=== PATIENT | female | born 1960 ===

== ENCOUNTER 2017-05-25 10:51 | Observation (INO) | payer MEDICAID ==
[2017-05-25] MEDS ORDERED: Sodium Chloride 0.9% 500 ML IV STA (11:18)
--- NOTE | 2017-05-25 11:22 | ED PDOC ---
HPI: Chest Pain Time Seen by Provider: 05/25/17 11:10 Chief Complaint (Nursing): Chest Pain Chief Complaint (Provider): Chest Pain History Per: Patient History/Exam Limitations: no limitations Onset/Duration Of Symptoms: Days (x 3) Current Symptoms Are (Timing): Still Present Additional Complaint(s): Aidee Rodriguez is a 57 y/o female with a past medical history of diabetes, hypertension, hypercholesterolemia, rheumatoid arthritis, and tachycardia, who presents to the ED complaining of constant chest pain for the past 3 days. Pain radiates up to her right shoulder and neck, and is associated with nausea, vomiting, and lightheadedness. Denies any associated leg pain, calf tenderness, numbness, tingling, weakness, shortness of breath, diarrhea, or abdominal pain. Also reports her blood sugar has been abnormal over the past 3 days. No control pills or long distance travel. PMD: [facility] Cardio: Dr. Jesus Manuel Damon - Risk Factors TAD Risk Factors: Pos: Hypertension Past Medical History Reviewed: Historical Data, Nursing Documentation, Vital Signs Vital Signs: Last Vital Signs Temp 97.6 F 05/25/17 11:00 Pulse 119 H 05/25/17 11:00 Resp 16 05/25/17 11:00 BP 152/92 H 05/25/17 11:00 Pulse Ox 98 05/25/17 11:25 - Medical History PMH: Diabetes (type II), HTN, Hypercholesterolemia, Kidney Stones, Chronic Kidney Disease (stones), Rheumatoid Arthritis Denies: HIV Other PMH: Tachycardia - Surgical History Surgical History: Appendectomy, Cholecystectomy Denies: CABG - Family History Family History: States: Unknown Family Hx - Social History Alcohol: None Drugs: Denies - Home Medications Home Medications: Ambulatory Orders Medication Instructions Recorded ALPRAZolam [Xanax] 0.25 mg PO HS 05/25/17 Allopurinol [Zyloprim] 300 mg PO DAILY 05/25/17 Aspirin [Ecotrin] 81 mg PO DAILY 05/25/17 Atenolol [Tenormin] 100 mg PO DAILY 05/25/17 Atorvastatin [Lipitor] 40 mg PO DAILY 05/25/17 Losartan Potassium [Losartan 100 mg PO DAILY 05/25/17 Potassium] [place]-3 Fatty Acids/Fish Oil 1,000 mg PO TID 05/25/17 [[place] 3 Fish Oil Softgel] diltiaZEM [Cardizem] 240 mg PO DAILY 05/25/17 metFORMIN [glucOPHAGE] 500 mg PO BID 05/25/17 - Allergies Allergies/Adverse Reactions: Allergies Allergy/AdvReac Type Severity Reaction Status Date / Time No Known Allergies Allergy Verified 06/19/16 21:11 Review of Systems ROS Statement: Except As Marked, All Systems Reviewed And Found Negative Constitutional: Negative for: Fever, Chills Cardiovascular: Positive for: Chest Pain (extending up right shoulder/neck), Light Headedness Gastrointestinal: Positive for: Nausea, Vomiting. Negative for: Abdominal Pain , Diarrhea Musculoskeletal: Negative for: Leg Pain, Other (Calf tenderness) Neurological: Negative for: Weakness, Numbness (and tingling) Physical Exam - Reviewed Nursing Documentation Reviewed: Yes Vital Signs Reviewed: Yes - Physical Exam Appears: Positive for: Non-toxic, No Acute Distress Head Exam: Positive for: ATRAUMATIC, NORMAL INSPECTION, NORMOCEPHALIC Skin: Positive for: Normal Color, Warm, Dry Eye Exam: Positive for: EOMI, Normal appearance, PERRL ENT: Positive for: Normal ENT Inspection Neck: Positive for: Normal, Painless ROM, Supple Cardiovascular/Chest: Positive for: Chest Non Tender, Tachycardia. Negative for : Regular Rate, Rhythm (mild tachy), Edema, Murmur Respiratory: Positive for: Normal Breath Sounds. Negative for: Accessory Muscle Use, Respiratory Distress Gastrointestinal/Abdominal: Positive for: Normal Exam, Soft. Negative for: Tenderness Back: Positive for: Normal Inspection. Negative for: L CVA Tenderness, R CVA Tenderness, Vertebral Tenderness Extremity: Positive for: Normal ROM. Negative for: Calf Tenderness, Deformity Neurologic/Psych: Positive for: Alert, Oriented. Negative for: Motor/Sensory Deficits - Laboratory Results Result Diagrams: 05/25/17 11:25 05/25/17 12:05 Interpretation Of Abn Labs: 17 CO2 - ECG ECG: Positive for: Interpreted By Me, Viewed By Me ECG Rhythm: Positive for: Normal QRS, Normal ST Segment, Sinus Tachycardia O2 Sat by Pulse Oximetry: 98 (RA) Pulse Ox Interpretation: Normal - Radiology X-Ray: Interpreted by Me, Viewed By Me X-Ray Interpretation: No Acute Disease - Progress ED Course And Treament: 1306: Stable. AAOx3. Pain free. Will admit for further eval. Spoke with Jian marie [place]. Will admit. Medical Decision Making Medical Decision Making: Time: 11:17 Impression: Chest pain Initial Plan: --CMP --Troponin I --CBC --PTT --Prothrombin time --EKG --CXR --Aspirin 325 mg PO --NS IV 500 ml at 100 mls/hr --Pending reevaluation Scribe Attestation: Documented by Nicole Aldridge, acting as a scribe for Jc Cedeño MD Provider Scribe Attestation: All medical record entries made by the Scribe were at my direction and personally dictated by me. I have reviewed the chart and agree that the record accurately reflects my personal performance of the history, physical exam, medical decision making, and the department course for this patient. I have also personally directed, reviewed, and agree with the discharge instructions and disposition. Disposition - Clinical Impression Clinical Impression: Acute chest pain, Hyperglycemia - Patient ED Disposition Is Patient to be Admitted: Yes Counseled Patient/Family Regarding: Studies Performed, Diagnosis - Disposition Disposition Time: 13:07 Condition: FAIR - Pt Status Changed To: Hospital Disposition Of: Observation - POA Present On Arrival: Poor Glycemic Control Core Measure Indicators: Chest Pain
[2017-05-25 11:37] LABS: BASO # 0.1 K/uL (0.0-0.2); BASO % 1.3 % (0.0-2.0); EOS # 0.2 K/uL (0.0-0.7); EOS % 2.8 % (0.0-4.0); HEMATOCRIT 43.6 % (34.0-47.0); LYMPH # 1.8 K/uL (1.0-4.3); LYMPH % 27.4 % (20.0-40.0); MEAN CELL VOLUME 87.9 fl (81.0-99.0); MEAN CORPUSCULAR HEMOGLOBIN 31.2 pg (27.0-31.0); MEAN CORPUSCULAR HGB CONC 35.5 g/dL (33.0-37.0); MEAN PLATELET VOLUME 10.2 fl (7.2-11.7); MONO # 0.6 K/uL (0.0-0.8); MONO % 8.6 % (0.0-10.0); NEUT # 3.9 K/uL (1.8-7.0); NEUT % 59.9 % (50.0-75.0); NRBC % 0.3 % (0.0-0.0); RED CELL DISTRIBUTION WIDTH 14.1 % (11.5-14.5); WHITE BLOOD COUNT 6.6 K/uL (4.8-10.8)
[2017-05-25 11:55] LABS: ALKALINE PHOSPHATASE 117 U/L (38-126); ALT/SGPT 30 U/L (9-52); AST/SGOT 67 U/L (14-36); BILIRUBIN,TOTAL 2.4 mg/dl (0.2-1.3); BLOOD UREA NITROGEN 8 mg/dl (7-17); CARBON DIOXIDE 17 mmol/L (22-30); CHLORIDE 105 mmol/L (98-107); GFR AFRICAN-AMERICAN > 60; GLUCOSE,RANDOM 312 mg/dL (65-105); SODIUM 136 mmol/l (132-148); TOTAL PROTEIN 9.2 G/DL (6.3-8.2)
[2017-05-25 12:04] LABS: POTASSIUM 6.2 MMOL/L (3.6-5.0)
[2017-05-25 12:12] LABS: PARTIAL THROMBOPLASTIN TIME 28.9 Seconds (25.6-37.1)
--- NOTE | 2017-05-25 12:54 | RAD ---
HISTORY: chest pain COMPARISON: No prior. FINDINGS: LUNGS: No active pulmonary disease. PLEURA: No significant pleural effusion identified, no pneumothorax apparent. CARDIOVASCULAR: Normal. OSSEOUS STRUCTURES: No significant abnormalities. VISUALIZED UPPER ABDOMEN: Normal. OTHER FINDINGS: None. IMPRESSION: No active disease.
[2017-05-25] MEDS ORDERED: Insulin Regular 100 units/ml IV STA ×2 (12:56→14:03)
[2017-05-25] MEDS ORDERED: Sodium Chloride 0.9% 1,000 ML IV STA (12:56)
[2017-05-25] MEDS ORDERED: diltiaZEM 240 mg/24 Hours CD Cap PO STA (13:30)
[2017-05-25] MEDS ORDERED: ATENOLOL 100 MG TAB PO STA (13:30)
[2017-05-25] MEDS ORDERED: Pneumococcal 23-Valent Vaccine IM ONE (16:11)
[2017-05-25] MEDS ORDERED: Influenza Vaccine 18yr & older 0.5 ML/45 MCG SYR IM ONE (16:12)
[2017-05-25 16:13] VITALS: BMI 33.3
[2017-05-25] MEDS: Insulin Regular 100 units/ml SC SCH ×2 (17:06→21:37)
[2017-05-25] MEDS: Omega-3-Acid Ethyl Esters 1 GM Cap PO SCH (17:07)
[2017-05-26 06:46] LABS: BASO # 0.1 K/uL (0.0-0.2); EOS # 0.3 K/uL (0.0-0.7); EOS % 4.5 % (0.0-4.0); HEMATOCRIT 41.7 % (34.0-47.0); LYMPH # 1.6 K/uL (1.0-4.3); LYMPH % 25.1 % (20.0-40.0); MEAN CORPUSCULAR HEMOGLOBIN 30.4 pg (27.0-31.0); MEAN CORPUSCULAR HGB CONC 33.8 g/dL (33.0-37.0); MEAN PLATELET VOLUME 8.9 fl (7.2-11.7); MONO # 0.6 K/uL (0.0-0.8); MONO % 9.4 % (0.0-10.0); NEUT # 3.7 K/uL (1.8-7.0); NRBC % 0.1 % (0.0-0.0); RED CELL DISTRIBUTION WIDTH 14.1 % (11.5-14.5); WHITE BLOOD COUNT 6.2 K/uL (4.8-10.8)
[2017-05-26 07:01] LABS: ALKALINE PHOSPHATASE 92 U/L (38-126); ALT/SGPT 51 U/L (9-52); AST/SGOT 22 U/L (14-36); BILIRUBIN,TOTAL 0.7 mg/dl (0.2-1.3); BLOOD UREA NITROGEN 7 mg/dl (7-17); CALCIUM 8.9 mg/dL (8.4-10.2); CARBON DIOXIDE 20 mmol/L (22-30); CHLORIDE 106 mmol/L (98-107); GFR AFRICAN-AMERICAN > 60; GLUCOSE,RANDOM 254 mg/dL (65-105); POTASSIUM 3.8 MMOL/L (3.6-5.0); SODIUM 137 mmol/l (132-148)
[2017-05-26] MEDS ORDERED: ATENOLOL 100 MG TAB PO SCH (09:00)
[2017-05-26] MEDS: Omega-3-Acid Ethyl Esters 1 GM Cap PO SCH ×2 (09:19→14:55)
[2017-05-26] MEDS: Insulin Regular 100 units/ml SC SCH ×2 (09:24→12:27)
--- NOTE | 2017-05-26 09:29 | CARD ---
APPROVED REPORT EKG Measurement Heart [id number] <Conclusion> Sinus tachycardia Possible Left atrial enlargement Borderline ECG
[2017-05-26] MEDS ORDERED: diltiaZEM 240 mg/24 Hours CD Cap PO SCH (09:45)
--- NOTE | 2017-05-26 10:03 | CP.PCM.CON ---
History of Present Illness - History of Present Illness History of Present Illness: I was asked to see patietn by Dr. Badillo and Jian Lindsey APN. Patient is a 57 year old female with a history of HTN, DM and rheumatoid arthritis who presents with neck and chest pain. The patient describes a pressure like sensation which began in the neck and upper back. She developed chest pain. Symptoms occurred at rest. There were no regional wall motion abnormalites. The patient presented to [facility] for further management. The patient has no current chest pain. Review of Systems - Constitutional Constitutional: absent: As Per HPI, Anorexia, Chills, Daytime Sleepiness, Excessive Sweating, Fatigue, Fever, Frequent Falls, Headache, Increased Appetite , Lethargy, Malaise, Night Sweats, Snoring, Sleep Apnea, Weight Gain, Weight Loss, Weakness, Other - EENT Eyes: absent: As Per HPI, Blind Spots, Blurred Vision, Change in Vision, Decreased Night Vision, Diplopia, Discharge, Dry Eye, Exophthalmos, Floaters, Irritation, Itchy Eyes, Loss of Peripheral Vision, Pain, Photophobia, Requires Corrective Lenses, Sees Flashes, Spots in Vision, Tunnel Vision, Other Visual Disturbances, Loss of Vision, Other Nose/Mouth/Throat: absent: As Per HPI, Epistaxis, Nasal Congestion, Nasal Discharge, Nasal Obstruction, Nasal Trauma, Nose Pain, Post Nasal Drip, Sinus Pain, Sinus Pressure, Bleeding Gums, Change in Voice, Dental Pain, Dry Mouth, Dysphagia, Halitosis, Hoarsness, Lip Swelling, Mouth Lesions, Mouth Pain, Odynophagia, Sore Throat, Throat Swelling, Tongue Swelling, Facial Pain, Neck Pain, Neck Mass, Other - Breasts Breasts: absent: As Per HPI, Change in Shape, Mass, Pain, Nipple Discharge, Nipple Inversion, Skin Changes, Swelling, Other - Cardiovascular Cardiovascular: Chest Pain - Respiratory Respiratory: absent: As Per HPI, Cough, Dyspnea, Hemoptysis, Dyspnea on Exertion , Wheezing, Snoring, Stridor, Pain on Inspiration, Chest Congestion, Excessive Mucous Production, Change in Mucous Color, Pain with Coughing, Other - Gastrointestinal Gastrointestinal: absent: As Per HPI, Abdominal Pain, Belching, Bloating, Change in Bowel Habits, Change in Stool Character, Coffee Ground Emesis, Constipation, Cramping, Diarrhea, Dyspepsia, Dysphagia, Early Satiety, Excessive Flatus, Fecal Incontinence, Heartburn, Hematemesis, Hematochezia, Loose Stools, Melena, Nausea, Odynophagia, Temesmus, Vomiting, Other - Genitourinary Genitourinary: absent: As Per HPI, Change in Urinary Stream, Difficulty Urinating, Dysuria, Flank Pain, Hematuria, Pyuria, Nocturia, Urinary Incontinence, Urinary Frequency, Urinary Hesitance, Urinary Urgency, Voiding Freq/Small Amts, Freq UTI, Hx Renal/Bladder Calculi, Hx /Renal Surgery, Bladder Distension, Other - Musculoskeletal Musculoskeletal: absent: As Per HPI, Abnormal Gait, Arthralgias, Atrophy, Back Pain, Deformity, Joint Swelling, Limited Range of Motion, Loss of Height, Muscle Cramps, Muscle Weakness, Myalgias, Neck Pain, Numbness, Radiating Pain into Limb, Stiffness, Tingling, Other - Integumentary Integumentary: absent: As Per HPI, Acne, Alopecia, Bleeding Lesions, Change in Hair, Change in Nails, Change in Pigmentation, Changing Lesions, Dry Skin, Erythema, Furuncle, Hirsutism, Lesions, New Lesions, Non-Healing Lesions, Photosensitivity, Pruritus, Rash, Skin Pain, Skin Ulcer, Sores, Striae, Swelling , Unusual Bruising, Wounds, Jaundice, Other - Neurological Neurological: absent: As Per HPI, Abnormal Gait, Abnormal Hearing, Abnormal Movements, Abnormal Speech, Behavioral Changes, Burning Sensations, Confusion, Convulsions, Disequilibrium, Dizziness, Numbness, Focal Weakness, Frequent Falls , Headaches, Lack of Coordination, Loss of Vision, Memory Loss, Paresthesias, Radicular Pain, Restless Legs, Sensory Deficit, Syncope, Tingling, Tremor, Vertigo, Weakness, Other Visual Disturbances, Other - Psychiatric Psychiatric: absent: As Per HPI, Abnormal Sleep Pattern, Anhedonia, Anxiety, Auditory Hallucinations, Behavioral Changes, Change in Appetite, Change in Libido, Confusion, Depression, Difficulty Concentrating, Hallucinations, Homicidal Ideation, Hopelessness, Irritability, Memory Loss, Mood Swings, Panic Attacks, Paranoia, Suicidal Ideation, Visual Hallucinations, Tactile Hallucinations, Other - Endocrine Endocrine: absent: As Per HPI, Change in Body Appearance, Change in Libido, Cold Intolorance, Deepening of Voice, Excessive Sweating, Fatigue, Flushing, Heat Intolorance, Increase in Ring/Shoe/Hat Size, Palpitations, Polydipsia, Polyphagia, Polyuria, Other - Hematologic/Lymphatic Hematologic: absent: As Per HPI, Easy Bleeding, Easy Bruising, Lymphadenopathy, Other Past Patient History - Past Medical History & Family History Past Medical History?: Yes - Past Social History Smoking Status: Heavy Smoker > 10 Cigarettes Daily - CARDIAC Hx Cardiac Disorders: Yes Hx Hypercholesterolemia: Yes Hx Hypertension: Yes - PULMONARY Hx Respiratory Disorders: No - NEUROLOGICAL Hx Neurological Disorder: No - HEENT Hx HEENT Problems: No - RENAL Hx Chronic Kidney Disease: Yes (stones) - ENDOCRINE/METABOLIC Hx Endocrine Disorders: Yes Hx Diabetes Mellitus Type 2: Yes - HEMATOLOGICAL/ONCOLOGICAL Hx Blood Disorders: No Hx AIDS: No Hx Human Immunodeficiency Virus (HIV): No - INTEGUMENTARY Hx Dermatological Problems: No - MUSCULOSKELETAL/RHEUMATOLOGICAL Hx Musculoskeletal Disorders: Yes Hx Falls: No Hx Rheumatoid Arthritis: Yes - GASTROINTESTINAL Hx Gastrointestinal Disorders: No - GENITOURINARY/GYNECOLOGICAL Hx Genitourinary Disorders: No - PSYCHIATRIC Hx Psychophysiologic Disorder: No Hx Substance Use: No - SURGICAL HISTORY Hx Surgeries: Yes Hx Appendectomy: Yes Hx Cholecystectomy: Yes Hx Coronary Artery Bypass Graft: No - ANESTHESIA Hx Anesthesia: Yes Hx Anesthesia Reactions: Yes (nausea) Hx Malignant Hyperthermia: No Meds Allergies/Adverse Reactions: Allergies Allergy/AdvReac Type Severity Reaction Status Date / Time No Known Allergies Allergy Verified 06/19/16 21:11 - Medications Medications: Current Medications Allopurinol (Zyloprim) 300 mg PO DAILY [facility] Last Admin: 05/26/17 09:21 Dose: 300 mg Alprazolam (Xanax) 0.25 mg PO [facility] Stop: 06/01/17 22:01 Last Admin: 05/25/17 21:26 Dose: 0.25 mg Aspirin (Ecotrin) 81 mg PO DAILY [facility] Last Admin: 05/26/17 09:20 Dose: 81 mg Atenolol (Atenolol) 100 mg PO DAILY [facility] Last Admin: 05/26/17 09:20 Dose: 100 mg Atorvastatin Calcium (Lipitor) 40 mg PO [facility] Last Admin: 05/25/17 21:24 Dose: 40 mg Diltiazem HCl (Cardizem Cd) 240 mg PO DAILY [facility] Insulin Human Regular (Humulin R) 0 units SC [facility] PRN Reason: Protocol Last Admin: 05/26/17 09:24 Dose: 4 units Losartan Potassium (Cozaar) 100 mg PO DAILY [facility] Last Admin: 05/26/17 09:20 Dose: 100 mg Metformin HCl (Glucophage) 500 mg PO BID [facility] Last Admin: 05/26/17 09:19 Dose: 500 mg Nitroglycerin (Nitrostat Sl Tab) 0.4 mg SL Q5M PRN PRN Reason: cp [id number] Ethyl Esters (Lovaza) 1 gm PO TID [facility] Last Admin: 05/26/17 09:19 Dose: 1 gm Physical Exam - Constitutional Appears: Non-toxic - Head Exam Head Exam: NORMAL INSPECTION - Eye Exam Eye Exam: Normal appearance - ENT Exam ENT Exam: Mucous Membranes Moist - Neck Exam Neck exam: Positive for: Full Rom - Respiratory Exam Respiratory Exam: NORMAL BREATHING PATTERN - Cardiovascular Exam Cardiovascular Exam: REGULAR RHYTHM - GI/Abdominal Exam GI & Abdominal Exam: Normal Bowel Sounds - Rectal Exam Rectal Exam: Deferred - Extremities Exam Extremities exam: Negative for: pedal edema - Back Exam Back exam: NORMAL INSPECTION - Neurological Exam Neurological exam: Alert, Oriented x3 - Psychiatric Exam Psychiatric exam: Normal Affect - Skin Skin Exam: Normal Color Results - Vital Signs Recent Vital Signs: Last Vital Signs Temp 97.8 F 05/26/17 08:53 Pulse 93 H 05/26/17 09:20 Resp 18 05/26/17 08:53 BP 155/88 H 05/26/17 09:20 Pulse Ox 99 05/26/17 08:53 - Labs Result Diagrams: 05/26/17 06:00 05/26/17 06:00 Labs: Laboratory Results - last 24 hr 05/25/17 05/25/17 05/25/17 14:02 17:04 18:50 WBC RBC Hgb Hct MCV MCH MCHC RDW Plt Count MPV Neut % (Auto) Lymph % (Auto) [place] % (Auto) Eos % (Auto) Baso % (Auto) Neut # Lymph # [place] # Eos # Baso # Sodium Potassium Chloride Carbon Dioxide Anion Gap BUN Creatinine Est GFR ( Amer) Est GFR (Non-Af Amer) POC Glucose (mg/dL) 264 H 339 H Random Glucose Calcium Total Bilirubin AST ALT Alkaline Phosphatase Troponin I < 0.0120 Total Protein Albumin Globulin Albumin/Globulin Ratio 05/25/17 05/26/17 05/26/17 21:19 05:02 06:00 WBC 6.2 RBC 4.64 Hgb 14.1 Hct 41.7 MCV 90.0 D MCH 30.4 MCHC 33.8 RDW 14.1 Plt Count 168 MPV 8.9 Neut % (Auto) 60.0 Lymph % (Auto) 25.1 [place] % (Auto) 9.4 Eos % (Auto) 4.5 H Baso % (Auto) 1.0 Neut # 3.7 Lymph # 1.6 [place] # 0.6 Eos # 0.3 Baso # 0.1 Sodium Potassium Chloride Carbon Dioxide Anion Gap BUN Creatinine Est GFR ( Amer) Est GFR (Non-Af Amer) POC Glucose (mg/dL) 255 H 257 H Random Glucose Calcium Total Bilirubin AST ALT Alkaline Phosphatase Troponin I Total Protein Albumin Globulin Albumin/Globulin Ratio 05/26/17 06:00 WBC RBC Hgb Hct MCV MCH MCHC RDW Plt Count MPV Neut % (Auto) Lymph % (Auto) [place] % (Auto) Eos % (Auto) Baso % (Auto) Neut # Lymph # [place] # Eos # Baso # Sodium 137 Potassium 3.8 Chloride 106 Carbon Dioxide 20 L Anion Gap 15 BUN 7 Creatinine 0.4 L Est GFR ( Amer) > 60 Est GFR (Non-Af Amer) > 60 POC Glucose (mg/dL) Random Glucose 254 H Calcium 8.9 Total Bilirubin 0.7 AST 22 ALT 51 Alkaline Phosphatase 92 Troponin I < 0.0120 Total Protein 7.0 Albumin 3.6 Globulin 3.4 Albumin/Globulin Ratio 1.0 - EKG Data EKG Interpreted by: Myself EKG shows normal: Sinus rhythm Assessment & Plan (1) Chest pain Assessment and Plan: patient ruled out fro myocardial infarction by cardiac enzymes. recommend discharge from a cardiac standpoint. Given DM, consider outpatient stress test. Status: Acute (2) HTN (hypertension) Assessment and Plan: blood pressure control Status: Acute (3) Non-insulin dependent type 2 diabetes mellitus Assessment and Plan: risk factor for CAD. discussed risk factors Status: Acute
[2017-05-26] MEDS ORDERED: Sodium Chloride 0.9% 500 ML IV ONE (11:41)
[2017-05-26] MEDS ORDERED: Sodium Chloride 0.9% 1,000 ML IV SCH (11:45)
--- NOTE | 2017-05-26 11:45 | CP.PCM.HP ---
History of Present Illness - History of Present Illness History of Present Illness: pt admitted for cp headache and dizziness x 3 days. no f/c, n/v/d. also c/o neck pain. trops x 3 negative. cleared by cardio. bp and glucose elevated. pt did not eat large amt of food this am. cxr wnl. bw noted Present on Admission - Present on Admission Any Indicators Present on Admission: Yes History of Uncontrolled Diabetes: Yes Review of Systems - Constitutional Constitutional: As Per HPI, Fatigue - Cardiovascular Cardiovascular: As Per HPI, Chest Pain - Neurological Neurological: As Per HPI, Dizziness Past Patient History - Past Medical History & Family History Past Medical History?: Yes - Past Social History Smoking Status: Heavy Smoker > 10 Cigarettes Daily - CARDIAC Hx Cardiac Disorders: Yes Hx Hypercholesterolemia: Yes Hx Hypertension: Yes - PULMONARY Hx Respiratory Disorders: No - NEUROLOGICAL Hx Neurological Disorder: No - HEENT Hx HEENT Problems: No - RENAL Hx Chronic Kidney Disease: Yes (stones) - ENDOCRINE/METABOLIC Hx Endocrine Disorders: Yes Hx Diabetes Mellitus Type 2: Yes - HEMATOLOGICAL/ONCOLOGICAL Hx Blood Disorders: No Hx AIDS: No Hx Human Immunodeficiency Virus (HIV): No - INTEGUMENTARY Hx Dermatological Problems: No - MUSCULOSKELETAL/RHEUMATOLOGICAL Hx Musculoskeletal Disorders: Yes Hx Falls: No Hx Rheumatoid Arthritis: Yes - GASTROINTESTINAL Hx Gastrointestinal Disorders: No - GENITOURINARY/GYNECOLOGICAL Hx Genitourinary Disorders: No - PSYCHIATRIC Hx Psychophysiologic Disorder: No Hx Substance Use: No - SURGICAL HISTORY Hx Surgeries: Yes Hx Appendectomy: Yes Hx Cholecystectomy: Yes Hx Coronary Artery Bypass Graft: No - ANESTHESIA Hx Anesthesia: Yes Hx Anesthesia Reactions: Yes (nausea) Hx Malignant Hyperthermia: No Meds Home Medications: Home Medication List Medication Instructions Recorded Confirmed Type Ibuprofen [Motrin] 600 mg PO Q8 PRN #30 tab 05/26/17 Rx metFORMIN [glucOPHAGE] 1,000 mg PO BID #60 tab 05/26/17 05/25/17 Rx Allergies/Adverse Reactions: Allergies Allergy/AdvReac Type Severity Reaction Status Date / Time No Known Allergies Allergy Verified 06/19/16 21:11 Physical Exam - Constitutional Appears: Well, Non-toxic, No Acute Distress - Head Exam Head Exam: ATRAUMATIC, NORMAL INSPECTION, NORMOCEPHALIC - Eye Exam Eye Exam: EOMI, Normal appearance, PERRL Pupil Exam: NORMAL ACCOMODATION, PERRL - ENT Exam ENT Exam: Mucous Membranes Moist, Normal Exam - Neck Exam Neck exam: Positive for: Normal Inspection - Respiratory Exam Respiratory Exam: Clear to Auscultation Bilateral, NORMAL BREATHING PATTERN - Cardiovascular Exam Cardiovascular Exam: REGULAR RHYTHM, RRR, +S1, +S2 - GI/Abdominal Exam GI & Abdominal Exam: Normal Bowel Sounds, Soft. absent: Tenderness - Extremities Exam Extremities exam: Positive for: full ROM, normal capillary refill, normal inspection, pedal pulses present - Back Exam Back exam: NORMAL INSPECTION - Neurological Exam Neurological exam: Alert, CN II-XII Intact, Normal Gait, Oriented x3, Reflexes Normal - Psychiatric Exam Psychiatric exam: Normal Affect, Normal Mood - Skin Skin Exam: Dry, Intact, Normal Color, Warm Results - Vital Signs Recent Vital Signs: Last Vital Signs Temp 97.8 F 05/26/17 08:53 Pulse 93 H 05/26/17 10:55 Resp 18 05/26/17 08:53 BP 145/88 05/26/17 10:55 Pulse Ox 99 05/26/17 08:53 - Labs Result Diagrams: 05/26/17 06:00 05/26/17 06:00 Labs: Laboratory Results - last 24 hr 05/25/17 05/25/17 05/25/17 14:02 17:04 18:50 WBC RBC Hgb Hct MCV MCH MCHC RDW Plt Count MPV Neut % (Auto) Lymph % (Auto) [place] % (Auto) Eos % (Auto) Baso % (Auto) Neut # Lymph # [place] # Eos # Baso # Sodium Potassium Chloride Carbon Dioxide Anion Gap BUN Creatinine Est GFR ( Amer) Est GFR (Non-Af Amer) POC Glucose (mg/dL) 264 H 339 H Random Glucose Calcium Total Bilirubin AST ALT Alkaline Phosphatase Troponin I < 0.0120 Total Protein Albumin Globulin Albumin/Globulin Ratio 05/25/17 05/26/17 05/26/17 21:19 05:02 06:00 WBC 6.2 RBC 4.64 Hgb 14.1 Hct 41.7 MCV 90.0 D MCH 30.4 MCHC 33.8 RDW 14.1 Plt Count 168 MPV 8.9 Neut % (Auto) 60.0 Lymph % (Auto) 25.1 [place] % (Auto) 9.4 Eos % (Auto) 4.5 H Baso % (Auto) 1.0 Neut # 3.7 Lymph # 1.6 [place] # 0.6 Eos # 0.3 Baso # 0.1 Sodium Potassium Chloride Carbon Dioxide Anion Gap BUN Creatinine Est GFR ( Amer) Est GFR (Non-Af Amer) POC Glucose (mg/dL) 255 H 257 H Random Glucose Calcium Total Bilirubin AST ALT Alkaline Phosphatase Troponin I Total Protein Albumin Globulin Albumin/Globulin Ratio 05/26/17 05/26/17 06:00 10:59 WBC RBC Hgb Hct MCV MCH MCHC RDW Plt Count MPV Neut % (Auto) Lymph % (Auto) [place] % (Auto) Eos % (Auto) Baso % (Auto) Neut # Lymph # [place] # Eos # Baso # Sodium 137 Potassium 3.8 Chloride 106 Carbon Dioxide 20 L Anion Gap 15 BUN 7 Creatinine 0.4 L Est GFR ( Amer) > 60 Est GFR (Non-Af Amer) > 60 POC Glucose (mg/dL) 374 H Random Glucose 254 H Calcium 8.9 Total Bilirubin 0.7 AST 22 ALT 51 Alkaline Phosphatase 92 Troponin I < 0.0120 Total Protein 7.0 Albumin 3.6 Globulin 3.4 Albumin/Globulin Ratio 1.0 Assessment & Plan (1) Headache Assessment and Plan: ibuprofen Status: Acute (2) Acute chest pain Assessment and Plan: cleared by cardio trops negative Status: Acute (3) HTN (hypertension) Assessment and Plan: cont home meds titrate prn Status: Acute (4) Non-insulin dependent type 2 diabetes mellitus Assessment and Plan: incr metformin to 1000 ivf dietary control riss Status: Acute (5) DVT prophylaxis Assessment and Plan: scd and aheose ambulation lovenox if pt not dc today Status: Acute (6) Dizziness Assessment and Plan: ?? r/t bp and glucose ivf ibuprofen for neck pain/headache-possible sources of diziness Status: Acute Decision To Admit - Pt Status Changed To: Hospital Disposition Of: Observation - . Bed Request Type: Telemetry Admitting Physician: Katie Badillo
[2017-05-26 12:05] VITALS: BP 161/84; PULSE 98; RESP 20; TEMP 98.1; O2SAT 98
--- NOTE | 2017-05-27 19:01 | CP.PCM.DIS ---
Provider - Provider Date of Admission: 05/25/17 13:06 Attending physician: Katie Badillo MD Time Spent in preparation of Discharge (in minutes): 15 Diagnosis - Discharge Diagnosis (1) Headache Status: Acute (2) Acute chest pain Status: Acute (3) HTN (hypertension) Status: Acute (4) Non-insulin dependent type 2 diabetes mellitus Status: Acute (5) DVT prophylaxis Status: Acute (6) Dizziness Status: Acute Hospital Course - Lab Results Lab Results: Most Recent Lab Values WBC 6.2 K/uL (4.8-10.8) 05/26/17 06:00 RBC 4.64 Mil/uL (3.80-5.20) 05/26/17 06:00 Hgb 14.1 g/dL (12.0-16.0) 05/26/17 06:00 Hct 41.7 % (34.0-47.0) 05/26/17 06:00 MCV 90.0 fl (81.0-99.0) D 05/26/17 06:00 MCH 30.4 pg (27.0-31.0) 05/26/17 06:00 MCHC 33.8 g/dL (33.0-37.0) 05/26/17 06:00 RDW 14.1 % (11.5-14.5) 05/26/17 06:00 Plt Count 168 K/uL (130-400) 05/26/17 06:00 MPV 8.9 fl (7.2-11.7) 05/26/17 06:00 Neut % (Auto) 60.0 % (50.0-75.0) 05/26/17 06:00 Lymph % (Auto) 25.1 % (20.0-40.0) 05/26/17 06:00 Iron % (Auto) 9.4 % (0.0-10.0) 05/26/17 06:00 Eos % (Auto) 4.5 % (0.0-4.0) H 05/26/17 06:00 Baso % (Auto) 1.0 % (0.0-2.0) 05/26/17 06:00 Neut # 3.7 K/uL (1.8-7.0) 05/26/17 06:00 Lymph # 1.6 K/uL (1.0-4.3) 05/26/17 06:00 Iron # 0.6 K/uL (0.0-0.8) 05/26/17 06:00 Eos # 0.3 K/uL (0.0-0.7) 05/26/17 06:00 Baso # 0.1 K/uL (0.0-0.2) 05/26/17 06:00 PT 10.6 Seconds (9.8-13.1) 05/25/17 11:25 INR 1.0 (0.9-1.2) 05/25/17 11:25 APTT 28.9 Seconds (25.6-37.1) 05/25/17 11:25 Sodium 137 mmol/l (132-148) 05/26/17 06:00 Potassium 3.8 MMOL/L (3.6-5.0) 05/26/17 06:00 Chloride 106 mmol/L (98-107) 05/26/17 06:00 Carbon Dioxide 20 mmol/L (22-30) L 05/26/17 06:00 Anion Gap 15 (10-20) 05/26/17 06:00 BUN 7 mg/dl (7-17) 05/26/17 06:00 Creatinine 0.4 mg/dL (0.7-1.2) L 05/26/17 06:00 Est GFR ( Amer) > 60 05/26/17 06:00 Est GFR (Non-Af Amer) > 60 05/26/17 06:00 POC Glucose (mg/dL) 374 mg/dL (65-110) H 05/26/17 10:59 Random Glucose 254 mg/dL (65-105) H 05/26/17 06:00 Calcium 8.9 mg/dL (8.4-10.2) 05/26/17 06:00 Total Bilirubin 0.7 mg/dl (0.2-1.3) 05/26/17 06:00 AST 22 U/L (14-36) 05/26/17 06:00 ALT 51 U/L (9-52) 05/26/17 06:00 Alkaline Phosphatase 92 U/L (38-126) 05/26/17 06:00 Troponin I < 0.0120 ng/mL (0.00-0.120) 05/26/17 06:00 Total Protein 7.0 G/DL (6.3-8.2) 05/26/17 06:00 Albumin 3.6 g/dL (3.5-5.0) 05/26/17 06:00 Globulin 3.4 gm/dL (2.2-3.9) 05/26/17 06:00 Albumin/Globulin Ratio 1.0 (1.0-2.1) 05/26/17 06:00 Discharge Exam - Head Exam Head Exam: ATRAUMATIC, NORMAL INSPECTION, NORMOCEPHALIC Discharge Plan - Discharge Medications Prescriptions: Ibuprofen [Motrin] 600 mg PO Q8 PRN #30 tab PRN Reason: pain w/ food - Follow Up Plan Condition: FAIR Disposition: HOME/ ROUTINE Instructions: Chest Pain (DC), Diabetes Mellitus Type 2 in Adults (DC), Meal Planning with Diabetes Exchanges (DC) Additional Instructions: cleared by cardio, final dx cp. f/u rmg, rted prn, meds pe rme drec feels better after ivf
== END 2017-05-26 14:56 | disposition home or self-care (01) ==
LOC: H.ER 10:51 → H.ERHOLD 13:06 → H.TEL 14:59
PROVIDERS: ADMIT Family Medicine; ATTEND Family Medicine
DX: R07.89 Other chest pain (principal); E78.00 Pure hypercholesterolemia, unspecified; I10 Essential (primary) hypertension; M06.9 Rheumatoid arthritis, unspecified; Z79.84 Long term (current) use of oral hypoglycemic drugs; F17.210 Nicotine dependence, cigarettes, uncomplicated; Z90.49 Acquired absence of other specified parts of digestive tract; Z87.442 Personal history of urinary calculi; M54.2 Cervicalgia; R42 Dizziness and giddiness; R51 Headache; Z23 Encounter for immunization; E11.8 Type 2 diabetes mellitus with unspecified complications
CPT/HCPCS: 36415; 71010; 80053; 82948; 84132; 84484; 85025; 85610; 85730; 90471; 90472; 90732; 93005; 96360; 96361; 99285; G0378; J2405; J7040; Q2035

== ENCOUNTER 2017-12-02 07:28 | Emergency (ER) | payer MEDICARE, MEDICAID ==
[2017-12-02 07:37] VITALS: BMI 33.5
[2017-12-02 07:38] VITALS: TEMP 97.9; O2SAT 99
--- NOTE | 2017-12-02 08:40 | ED PDOC ---
HPI: General Adult Time Seen by Provider: 12/02/17 08:02 Chief Complaint (Nursing): Anxiety Chief Complaint (Provider): Anxiety History Per: Patient History/Exam Limitations: no limitations Additional Complaint(s): 57 y/o female presents to the ED for evaluation of an anxiety attack. Patient woke up at 3am with headache and anxiety. Also reports palpitations and mid chest pain. Patient is unsure of any symptoms leading to the anxiety attack. Denies shortness of breath, homicidal or suicidal ideation or any further medical complaints. Past Medical History Reviewed: Historical Data, Nursing Documentation, Vital Signs Vital Signs: Last Vital Signs Temp 97.9 F 12/02/17 07:50 Pulse 89 12/02/17 07:50 Resp 16 12/02/17 07:50 BP 175/80 H 12/02/17 07:50 Pulse Ox 99 12/02/17 12:11 - Medical History PMH: Anxiety, Diabetes (type II), HTN, Hypercholesterolemia, Kidney Stones, Chronic Kidney Disease (stones), Rheumatoid Arthritis Denies: HIV - Surgical History Surgical History: Appendectomy, Cholecystectomy Denies: CABG - Family History Family History: States: Unknown Family Hx - Social History Current smoker - smoking cessation education provided: Yes (1pack/day) Alcohol: None Drugs: Denies - Home Medications Home Medications: Ambulatory Orders Medication Instructions Recorded ALPRAZolam [Xanax] 0.25 mg PO HS 05/25/17 Allopurinol [Zyloprim] 300 mg PO DAILY 05/25/17 Aspirin [Ecotrin] 81 mg PO DAILY 05/25/17 Atenolol [Tenormin] 100 mg PO DAILY 05/25/17 Atorvastatin [Lipitor] 40 mg PO DAILY 05/25/17 Losartan Potassium 100 mg PO DAILY 05/25/17 [place]-3 Fatty Acids/Fish Oil 1,000 mg PO TID 05/25/17 [[place] 3 Fish Oil Softgel] diltiaZEM [Cardizem] 240 mg PO DAILY 05/25/17 Ibuprofen [Motrin] 600 mg PO Q8 PRN #30 tab 05/26/17 metFORMIN [glucOPHAGE] 1,000 mg PO BID #60 tab 05/26/17 - Allergies Allergies/Adverse Reactions: Allergies Allergy/AdvReac Type Severity Reaction Status Date / Time No Known Allergies Allergy Verified 06/19/16 21:11 Review of Systems ROS Statement: Except As Marked, All Systems Reviewed And Found Negative (As per HPI, otherwise negative) Cardiovascular: Positive for: Chest Pain, Palpitations Respiratory: Negative for: Shortness of Breath Neurological: Positive for: Headache Psych: Positive for: Anxiety. Negative for: Suicidal ideation (or homicidal ideation) Physical Exam - Reviewed Nursing Documentation Reviewed: Yes Vital Signs Reviewed: Yes - Physical Exam Appears: Positive for: Non-toxic Head Exam: Positive for: ATRAUMATIC, NORMAL INSPECTION, NORMOCEPHALIC Skin: Positive for: Normal Color, Warm, Dry Eye Exam: Positive for: EOMI, Normal appearance, PERRL ENT: Positive for: Normal ENT Inspection Neck: Positive for: Normal, Painless ROM, Supple Cardiovascular/Chest: Positive for: Regular Rate, Rhythm. Negative for: Murmur Respiratory: Positive for: Normal Breath Sounds. Negative for: Accessory Muscle Use, Respiratory Distress Gastrointestinal/Abdominal: Positive for: Normal Exam, Bowel Sounds, Soft. Negative for: Tenderness Back: Positive for: Normal Inspection Extremity: Positive for: Normal ROM. Negative for: Deformity Neurologic/Psych: Positive for: Alert, Oriented (x3) - Laboratory Results Result Diagrams: 12/02/17 09:10 12/02/17 09:10 - ECG ECG Rhythm: Positive for: Sinus Rhythm (Normal Sinus Rhythm at 90bpm) O2 Sat by Pulse Oximetry: 99 (RA) Pulse Ox Interpretation: Normal Medical Decision Making Medical Decision Making: Time: 08:01 Initial Impression: Anxiety attack Plan: EKG CMP Troponin I Crisis Evaluation CBC w/ differntial Reevalaution Time: 12:07 -- Patient was cleared by crisis (Dr. Ruelas) Upon provider reevaluation patient is feeling better, is medically stable, and requires no further treatment in the ED at this time. Patient will be discharged home. Counseling was provided and all questions were answered regarding diagnosis. There is agreement to discharge plan. Return if symptoms persist or worsen. Clinical Impression: Anxiety Scribe Attestation: Documented by Belen Schwarz acting as a scribe for Hafsa Hernadez MD. Scrib[place]ifford Attestation: All medical record entries made by the Scribe were at my direction and personally dictated by me. I have reviewed the chart and agree that the record accurately reflects my personal performance of the history, physical exam, medical decision making, and the department course for this patient. I have also personally directed, reviewed, and agree with the discharge instructions and disposition. Disposition - Clinical Impression Clinical Impression: Anxiety - Disposition Disposition: Routine/Home Disposition Time: 12:07 Additional Instructions: FOLLOW UP WITH YOUR PRIMARY DOCTOR IN 1-2 DAYS/OUTPATIENT PSYCHIATRIST RETURN TO THE ED WITH ANY WORSENING OR CONCERNING SYMPTOMS Instructions: Anxiety, Adult (DC) Forms: [facility] (Khmer)
[2017-12-02 09:23] LABS: ALT/SGPT 47 U/L (9-52); AST/SGOT 25 U/L (14-36); BLOOD UREA NITROGEN 13 mg/dl (7-17); CALCIUM 9.5 mg/dL (8.4-10.2); GFR AFRICAN-AMERICAN > 60; GFR NON-AFRICAN AMERICAN > 60
[2017-12-02 09:27] LABS: BASO # 0.1 K/uL (0.0-0.2); BASO % 1.2 % (0.0-2.0); EOS # 0.2 K/uL (0.0-0.7); HEMOGLOBIN 14.2 g/dL (12.0-16.0); LYMPH # 1.8 K/uL (1.0-4.3); LYMPH % 21.6 % (20.0-40.0); MEAN CELL VOLUME 91.4 fl (81.0-99.0); MEAN CORPUSCULAR HEMOGLOBIN 30.9 pg (27.0-31.0); MEAN CORPUSCULAR HGB CONC 33.8 g/dL (33.0-37.0); MEAN PLATELET VOLUME 9.1 fl (7.2-11.7); MONO # 0.6 K/uL (0.0-0.8); MONO % 7.1 % (0.0-10.0); NEUT # 5.4 K/uL (1.8-7.0); NEUT % 67.1 % (50.0-75.0); NRBC % 0.1 % (0.0-0.0); RBC 4.6 Mil/uL (3.80-5.20); RED CELL DISTRIBUTION WIDTH 13.6 % (11.5-14.5); WHITE BLOOD COUNT 8.1 K/uL (4.8-10.8)
[2017-12-02 12:28] VITALS: BP 150/80; PULSE 84; RESP 18
--- NOTE | 2017-12-02 23:54 | CARD ---
APPROVED REPORT EKG Measurement Heart [id number] [id number] <Conclusion> Normal sinus rhythm Normal ECG
== END 2017-12-02 12:22 | disposition home or self-care (01) ==
LOC: H.ER 07:28
DX: F41.9 Anxiety disorder, unspecified (principal); E11.22 Type 2 diabetes mellitus with diabetic chronic kidney disease; E78.00 Pure hypercholesterolemia, unspecified; F17.210 Nicotine dependence, cigarettes, uncomplicated; I12.9 Hypertensive chronic kidney disease with stage 1 through stage 4 chronic kidney disease, or unspecified chronic kidney disease; M06.9 Rheumatoid arthritis, unspecified; N18.9 Chronic kidney disease, unspecified; Z79.82 Long term (current) use of aspirin; Z79.84 Long term (current) use of oral hypoglycemic drugs; Z87.442 Personal history of urinary calculi

== ENCOUNTER 2018-02-18 17:59 | Emergency (ER) | payer MEDICARE ==
[2018-02-18 17:59] VITALS: BMI 33.5
[2018-02-18 18:13] VITALS: RESP 16; TEMP 97.9; O2SAT 98
[2018-02-18] MEDS ORDERED: Sodium Chloride 0.9% 1,000 ML IV STA (19:13)
--- NOTE | 2018-02-18 20:08 | ED PDOC ---
HPI: Abdomen Time Seen by Provider: 02/18/18 18:30 Chief Complaint (Nursing): Abdominal Pain Chief Complaint (Provider): Abdominal Pain History Per: Patient History/Exam Limitations: no limitations Onset/Duration Of Symptoms: Days (2x) Current Symptoms Are (Timing): Still Present Location Of Pain/Discomfort: RUQ Quality Of Discomfort: "Pain" Associated Symptoms: Vomiting (twice). denies: Fever, Nausea, Diarrhea, Constipation, Urinary Symptoms Additional Complaint(s): 58 year old female with a history of kidney stones presents to the ED complaining of right upper abdominal pain and right-sided back pain onset for two days. She also vomited twice today. Denies fever, nausea, diarrhea, constipation, dysuria or hematuria. PMD: Tristin Sparks Past Medical History Reviewed: Historical Data, Nursing Documentation, Vital Signs Vital Signs: Last Vital Signs Temp 97.9 F 02/18/18 18:10 Pulse 84 02/18/18 21:05 Resp 16 02/18/18 18:10 BP 125/72 02/18/18 21:05 Pulse Ox 98 02/18/18 20:44 - Medical History PMH: Anxiety, Diabetes (type II), HTN, Hypercholesterolemia, Kidney Stones, Chronic Kidney Disease (stones), Rheumatoid Arthritis Denies: Hepatitis, HIV, Seizures, Sexually Transmitted Disease - Surgical History Surgical History: Appendectomy, Cholecystectomy Denies: CABG - Family History Family History: States: Unknown Family Hx - Home Medications Home Medications: Ambulatory Orders Medication Instructions Recorded ALPRAZolam [Xanax] 0.25 mg PO HS 05/25/17 Allopurinol [Zyloprim] 300 mg PO DAILY 05/25/17 Aspirin [Ecotrin] 81 mg PO DAILY 05/25/17 Atenolol [Tenormin] 100 mg PO DAILY 05/25/17 Atorvastatin [Lipitor] 40 mg PO DAILY 05/25/17 Losartan Potassium 100 mg PO DAILY 05/25/17 [place]-3 Fatty Acids/Fish Oil 1,000 mg PO TID 05/25/17 [[place] 3 Fish Oil Softgel] diltiaZEM [Cardizem] 240 mg PO DAILY 05/25/17 Ibuprofen [Motrin] 600 mg PO Q8 PRN #30 tab 05/26/17 metFORMIN [glucOPHAGE] 1,000 mg PO BID #60 tab 05/26/17 Naproxen [Naprosyn] 500 mg PO BID PRN #15 tablet 02/18/18 - Allergies Allergies/Adverse Reactions: Allergies Allergy/AdvReac Type Severity Reaction Status Date / Time No Known Allergies Allergy Verified 02/18/18 18:10 Review of Systems ROS Statement: Except As Marked, All Systems Reviewed And Found Negative Constitutional: Negative for: Fever Gastrointestinal: Positive for: Vomiting, Abdominal Pain (right upper-side). Negative for: Nausea, Diarrhea Genitourinary Female: Negative for: Dysuria, Hematuria Musculoskeletal: Positive for: Back Pain (right-side) Physical Exam - Reviewed Nursing Documentation Reviewed: Yes Vital Signs Reviewed: Yes - Physical Exam Appears: Positive for: Well, Non-toxic, No Acute Distress Head Exam: Positive for: ATRAUMATIC, NORMAL INSPECTION, NORMOCEPHALIC Skin: Positive for: Normal Color, Warm, Dry Cardiovascular/Chest: Positive for: Regular Rate, Rhythm. Negative for: Murmur Respiratory: Positive for: Normal Breath Sounds. Negative for: Decreased Breath Sounds, Accessory Muscle Use, Respiratory Distress Gastrointestinal/Abdominal: Positive for: Tenderness (right-upper) Neurologic/Psych: Positive for: Alert, Oriented (x3) - Laboratory Results Result Diagrams: 02/18/18 19:55 02/18/18 19:55 - ECG O2 Sat by Pulse Oximetry: 98 (RA) Pulse Ox Interpretation: Normal Medical Decision Making Medical Decision Making: Time: 1912 Initial Impression: UTI, pyelo, flank pain Initial Plan: --Abd & Pelvis w/o PO or IV [CT] --EKG --CMP --ED Urine Dipstick --CBC w/ Differential --PTT --Prothrombin Time --Morphine 2mg IV --Normal Saline 1000 mls/hr --Urinalysis --Reevaluation Time: 2017 Addendum created by Chandan Ken MD on 02/18/2018 8:20 PM Eastern Time ([place] & [place]) Resolution of left UPJ calculus and obstructive uropathy since 12/11/2015. Initial Report created on 02/18/2018 8:18 PM Eastern Time ([place] & [place]) The EXAM: CT Abdomen and Pelvis Without Intravenous Contrast EXAM DATE/TIME: 02/18/2018 7:13 PM CLINICAL HISTORY: 58 years old, female; Pain; Abdominal pain; Flank; Right; Prior surgery; Surgery date: 6+ months; Surgery type: Appendectomy, cholecystectomy; Patient HX: HX of kidney stones; Additional info: R flank pain TECHNIQUE: Axial computed tomography images of the abdomen and pelvis without intravenous contrast. All CT scans at this facility use one or more dose reduction techniques, viz.: automated exposure control; ma/kV adjustment per patient size (including targeted exams where dose is matched to indication; i.e. head); or iterative reconstruction technique. COMPARISON: CT - ABD PELVIS W/O PO OR IV CONT 2015-12-11 11:58 FINDINGS: Lower thorax: No acute findings. ABDOMEN: Liver: There is fatty infiltration of the liver. Gallbladder and bile ducts: Status post cholecystectomy. Pancreas: Normal. No ductal dilation. Spleen: Normal. No splenomegaly. Adrenals: Normal. No mass. Kidneys and ureters: Nonobstructing bilateral renal calculi. Minimal asymmetric right pelvocaliectasis without significant hydroureter. No ureteral, UVJ or bladder calculi are evident. Stomach and bowel: Normal. No obstruction. No mucosal thickening. Appendix: The appendix is not seen. PELVIS: Bladder: The urinary bladder is decompressed but appears grossly normal. Reproductive: Left ovarian cyst measuring 14 mm. ABDOMEN and PELVIS: Intraperitoneal space: Normal. No free air. No significant fluid collection. Bones/joints: Degenerative facet arthropathy of the lower lumbar spine. Soft tissues: Moderate fat filled inferior periumbilical hernia. Vasculature: There is minimal atherosclerotic calcification of the abdominal aorta. Lymph nodes: Normal. No enlarged lymph nodes. IMPRESSION: 1. Nonobstructing bilateral renal calculi. 2. Minimal asymmetric right pelvocaliectasis to the UPJ with no hydroureter or ureteral, UVJ or bladder calculi. Findings may reflect minimal residua of a recently passed stone. 3. Status post cholecystectomy. 4. Fatty infiltration of the liver. 5. Moderate fat filled inferior periumbilical hernia. Scribe Attestation: Documented by Jaciel Mejía, acting as a scribe for Misty Collier MD Provider Scribe Attestation: All medical record entries made by the Scribe were at my direction and personally dictated by me. I have reviewed the chart and agree that the record accurately reflects my personal performance of the history, physical exam, medical decision making, and the department course for this patient. I have also personally directed, reviewed, and agree with the discharge instructions and disposition. Disposition - Clinical Impression Clinical Impression: Flank pain - Disposition Referrals: Tristin Sparks MD [Family Provider] - Disposition: Routine/Home Disposition Time: 20:45 Condition: IMPROVED Prescriptions: Naproxen [Naprosyn] 500 mg PO BID PRN #15 tablet PRN Reason: Pain, Moderate (4-7) Instructions: Flank Pain Forms: [facility] (Senegalese)
[2018-02-18 20:09] LABS: BASO # 0.1 K/uL (0.0-0.2); BASO % 1.1 % (0.0-2.0); EOS # 0.3 K/uL (0.0-0.7); EOS % 3.3 % (0.0-4.0); LYMPH # 2.8 K/uL (1.0-4.3); LYMPH % 27.9 % (20.0-40.0); MEAN CELL VOLUME 92.1 fl (81.0-99.0); MEAN CORPUSCULAR HEMOGLOBIN 31.7 pg (27.0-31.0); MEAN CORPUSCULAR HGB CONC 34.4 g/dL (33.0-37.0); MEAN PLATELET VOLUME 8.5 fl (7.2-11.7); MONO # 0.7 K/uL (0.0-0.8); MONO % 7.2 % (0.0-10.0); NEUT # 6.2 K/uL (1.8-7.0); NEUT % 60.5 % (50.0-75.0); NRBC % 0.1 % (0.0-0.0); RBC 4.43 Mil/uL (3.80-5.20); RED CELL DISTRIBUTION WIDTH 13.5 % (11.5-14.5); SQUAMOUS EPITHIAL 1 /hpf (0-5); URINE BACTERIA RARE (<OCC); URINE BILIRUBIN NEGATIVE (NEGATIVE); URINE BLOOD NEGATIVE (NEGATIVE); URINE CLARITY CLEAR (Clear); URINE COLOR YELLOW (YELLOW); URINE GLUCOSE (UA) >=500 mg/dL (Normal); URINE LEUKOCYTE ESTERASE NEG Leu/uL (Negative); URINE PROTEIN NEGATIVE (NEGATIVE); URINE UROBILINOGEN 0.2-1.0 mg/dL (0.2-1.0); WHITE BLOOD COUNT 10.2 K/uL (4.8-10.8)
[2018-02-18 20:16] LABS: ALB/GLOB RATIO 1.2 (1.0-2.1); ALBUMIN 4.2 g/dL (3.5-5.0); ALT/SGPT 55 U/L (9-52); AST/SGOT 24 U/L (14-36); BLOOD UREA NITROGEN 15 mg/dl (7-17); CALCIUM 9.5 mg/dL (8.4-10.2); GFR AFRICAN-AMERICAN > 60; GFR NON-AFRICAN AMERICAN > 60
[2018-02-18 20:24] LABS: PROTHROMBIN TIME 10.7 Seconds (9.8-13.1)
[2018-02-18 21:05] VITALS: BP 125/72; PULSE 84
--- NOTE | 2018-02-19 09:33 | CT ---
PROCEDURE: CT Abdomen and Pelvis without intravenous contrast HISTORY: R flank pain COMPARISON: Abdomen pelvis CT without contrast 06/19/2016. TECHNIQUE: Helical CT of the abdomen and pelvis was performed without oral or intravenous contrast as per referring physician request. Contrast dose: None Radiation dose: Total exam DLP = 980.78 mGy-cm. This CT exam was performed using one or more of the following dose reduction techniques: Automated exposure control, adjustment of the mA and/or kV according to patient size, and/or use of iterative reconstruction technique. FINDINGS: LOWER THORAX: Unremarkable. LIVER: Diffuse hepatic steatosis is again identified without definable mass appreciated. GALLBLADDER AND BILE DUCTS: Unremarkable. PANCREAS: Unremarkable. No gross lesion or ductal dilatation. SPLEEN: Unremarkable. ADRENALS: Unremarkable. No mass. KIDNEYS AND URETERS: Multiple punctate intrarenal calculi are identified bilaterally, greater the left and right kidneys. The ureters normal in caliber bilaterally with the urinary bladder completely decompressed and also free of radiodense urolithiasis. Mild right pelvic caliectasis appreciate were compared to the left kidney and may reflect residual dilatation from expelled obstructing calculus. VASCULATURE: Unremarkable. No aortic aneurysm. BOWEL: Moderate fecal loading seen at the right hemicolon. No obstruction. No gross mural thickening. APPENDIX: Not identified. No appendicitis appreciable. PERITONEUM: Unremarkable. No free fluid. No free air. A mild umbilical hernia identified containing only mesentery and no bowel. LYMPH NODES: Unremarkable. No enlarged lymph nodes. BLADDER: As above in kidneys and ureter section. REPRODUCTIVE: Unremarkable. BONES: No acute fracture. OTHER FINDINGS: None. IMPRESSION: Likely postobstructive pelvocaliectasis right kidney as no obstructing calculus is identified at the right ureter or the urinary bladder at this time. Multiple punctate intrarenal calculi identified the left greater than right kidney. No obstructive uropathy left kidney. Concordant preliminary report from [facility], 02/18/2018.
--- NOTE | 2018-02-19 11:41 | CARD ---
APPROVED REPORT EKG Measurement Heart [id number] DE [id number] [id number] <Conclusion> Normal sinus rhythm Normal ECG
== END 2018-02-18 21:05 | disposition home or self-care (01) ==
LOC: H.ER 17:59
DX: N20.0 Calculus of kidney (principal); K76.0 Fatty (change of) liver, not elsewhere classified; K42.9 Umbilical hernia without obstruction or gangrene; N83.291 Other ovarian cyst, right side; E11.22 Type 2 diabetes mellitus with diabetic chronic kidney disease; E78.00 Pure hypercholesterolemia, unspecified; F41.9 Anxiety disorder, unspecified; I12.9 Hypertensive chronic kidney disease with stage 1 through stage 4 chronic kidney disease, or unspecified chronic kidney disease; M06.9 Rheumatoid arthritis, unspecified; Z79.82 Long term (current) use of aspirin; Z79.84 Long term (current) use of oral hypoglycemic drugs; Z90.49 Acquired absence of other specified parts of digestive tract
CPT/HCPCS: 74176; 80053; 81003; 85025; 85610; 85730; 93005; 96360; 99284; J2270; J7030

== ENCOUNTER 2018-04-20 11:39 | Emergency (ER) | payer MEDICARE ==
[2018-04-20 11:49] VITALS: RESP 16
[2018-04-20 11:50] VITALS: BMI 34.0
--- NOTE | 2018-04-20 12:27 | ED PDOC ---
HPI: Abdomen Time Seen by Provider: 04/20/18 12:00 Chief Complaint (Nursing): Abdominal Pain Chief Complaint (Provider): right flankn pain History Per: Patient (58 y/o female here with right sided flank pain associated with hematuria this week. Notes additional vomiting. Denies any fevers/chills. ) Past Medical History Reviewed: Historical Data, Nursing Documentation, Vital Signs Vital Signs: Last Vital Signs Temp 98.1 F 04/20/18 11:48 Pulse 98 H 04/20/18 11:48 Resp 16 04/20/18 11:48 BP 162/95 H 04/20/18 11:48 Pulse Ox 98 04/20/18 15:17 - Medical History PMH: Anxiety, Diabetes (type II), HTN, Hypercholesterolemia, Kidney Stones, Chronic Kidney Disease (stones), Rheumatoid Arthritis Denies: Hepatitis, HIV, Seizures, Sexually Transmitted Disease - Surgical History Surgical History: Appendectomy, Cholecystectomy Denies: CABG - Family History Family History: States: Unknown Family Hx - Home Medications Home Medications: Ambulatory Orders Medication Instructions Recorded ALPRAZolam [Xanax] 0.25 mg PO HS 05/25/17 Allopurinol [Zyloprim] 300 mg PO DAILY 05/25/17 Aspirin [Ecotrin] 81 mg PO DAILY 05/25/17 Atenolol [Tenormin] 100 mg PO DAILY 05/25/17 Atorvastatin [Lipitor] 40 mg PO DAILY 05/25/17 Losartan Potassium 100 mg PO DAILY 05/25/17 [place]-3 Fatty Acids/Fish Oil 1,000 mg PO TID 05/25/17 [[place] 3 Fish Oil Softgel] diltiaZEM [Cardizem] 240 mg PO DAILY 05/25/17 Ibuprofen [Motrin] 600 mg PO Q8 PRN #30 tab 05/26/17 metFORMIN [glucOPHAGE] 1,000 mg PO BID #60 tab 05/26/17 Naproxen [Naprosyn] 500 mg PO BID PRN #15 tablet 02/18/18 Ciprofloxacin HCl [Cipro] 500 mg PO BID #14 tab 04/20/18 Naproxen 375 mg PO Q8 PRN #21 tablet 04/20/18 Ondansetron ODT [Zofran ODT] 4 mg PO Q8 PRN #10 odt 04/20/18 - Allergies Allergies/Adverse Reactions: Allergies Allergy/AdvReac Type Severity Reaction Status Date / Time No Known Allergies Allergy Verified 04/20/18 12:11 Review of Systems ROS Statement: Except As Marked, All Systems Reviewed And Found Negative Physical Exam - Reviewed Nursing Documentation Reviewed: Yes Vital Signs Reviewed: Yes - Physical Exam Appears: Positive for: Well, Non-toxic, No Acute Distress Head Exam: Positive for: ATRAUMATIC, NORMAL INSPECTION, NORMOCEPHALIC Skin: Positive for: Normal Color, Warm, DRY Eye Exam: Positive for: EOMI, Normal appearance, PERRL ENT: Positive for: Normal ENT Inspection Neck: Positive for: Normal, Painless ROM Cardiovascular/Chest: Positive for: Regular Rate, Rhythm Respiratory: Positive for: CNT, Normal Breath Sounds Gastrointestinal/Abdominal: Positive for: Normal Exam, Soft, Tenderness (ruq/ right lower quadrant/right flank tenderness) Back: Positive for: Normal Inspection, R CVA Tenderness Extremity: Positive for: Normal ROM Neurologic/Psych: Positive for: Alert, Oriented - Laboratory Results Result Diagrams: 04/20/18 12:40 04/20/18 12:40 - ECG O2 Sat by Pulse Oximetry: 98 - Progress ED Course And Treament: NS 1 LITER 500 ML PER HOUR TORADOL 15 MG IV X 1 DOSE ZOFRAN 4 MG IV X 1 DOSE ROCEPHIN 1 GM IV URINE CX SENT CT ABD/PELVIS: IMPRESSION: No obstructive uropathy or evidence of recently passed genitourinary calculus. Bilateral nonobstructive punctate renal calculi. D/W KIMANI GARCIA. PATIENT TO F/U OUTPATIENT Disposition - Clinical Impression Clinical Impression: Pyelonephritis, Hematuria - Patient ED Disposition Is Patient to be Admitted: No - Disposition Disposition: Routine/Home Disposition Time: 15:23 Condition: FAIR Additional Instructions: FOLLOW UP WITH [facility] TOMORROW Prescriptions: Ciprofloxacin HCl [Cipro] 500 mg PO BID #14 tab Naproxen 375 mg PO Q8 PRN #21 tablet PRN Reason: Pain, Moderate (4-7) Ondansetron ODT [Zofran ODT] 4 mg PO Q8 PRN #10 odt PRN Reason: Nausea/Vomiting Instructions: Kidney Infection, Blood in the Urine (Hematuria), Adult (DC) Forms: [employer] (Slovak)
[2018-04-20 12:53] LABS: BASO # 0.1 K/uL (0.0-0.2); BASO % 1.3 % (0.0-2.0); EOS # 0.3 K/uL (0.0-0.7); EOS % 3.2 % (0.0-4.0); HEMOGLOBIN 15.2 g/dL (12.0-16.0); LYMPH # 2.4 K/uL (1.0-4.3); LYMPH % 26.2 % (20.0-40.0); MEAN CELL VOLUME 92.5 fl (81.0-99.0); MEAN CORPUSCULAR HEMOGLOBIN 31.5 pg (27.0-31.0); MEAN CORPUSCULAR HGB CONC 34.1 g/dL (33.0-37.0); MEAN PLATELET VOLUME 8.5 fl (7.2-11.7); MONO # 0.6 K/uL (0.0-0.8); MONO % 6.9 % (0.0-10.0); NEUT # 5.7 K/uL (1.8-7.0); NEUT % 62.4 % (50.0-75.0); RBC 4.81 Mil/uL (3.80-5.20); RED CELL DISTRIBUTION WIDTH 13.3 % (11.5-14.5); WHITE BLOOD COUNT 9.2 K/uL (4.8-10.8)
[2018-04-20 13:00] LABS: SQUAMOUS EPITHIAL 25 /hpf (0-5); URINE BILIRUBIN NEGATIVE (NEGATIVE); URINE BLOOD LARGE (NEGATIVE); URINE CALCIUM OXALATE CRYSTALS MANY /hpf (<OCC); URINE CLARITY CLOUDY (Clear); URINE COLOR AMBER (YELLOW); URINE GLUCOSE (UA) >=500 mg/dL (Normal); URINE LEUKOCYTE ESTERASE NEG Leu/uL (Negative); URINE PROTEIN 100 mg/dL (NEGATIVE); URINE UROBILINOGEN 0.2-1.0 mg/dL (0.2-1.0)
[2018-04-20 13:02] LABS: ALB/GLOB RATIO 1.1 (1.0-2.1); ALBUMIN 4.4 g/dL (3.5-5.0); ALT/SGPT 52 U/L (9-52); AST/SGOT 34 U/L (14-36); BLOOD UREA NITROGEN 11 mg/dl (7-17); CALCIUM 9.9 mg/dL (8.4-10.2); GFR AFRICAN-AMERICAN > 60; GFR NON-AFRICAN AMERICAN > 60
--- NOTE | 2018-04-20 13:51 | CT ---
Date of service: 04/20/2018 PROCEDURE: CT Abdomen and Pelvis without intravenous contrast HISTORY: r/o kidney stone right flank COMPARISON: CT scan of the abdomen pelvis dated 02/18/2018. TECHNIQUE: Contiguous images were obtained from the domes of the diaphragms to the upper thighs without the administration of intravenous contrast. Oral contrast was not administered. Radiation dose: Total exam DLP = 786.3 mGy-cm. This CT exam was performed using one or more of the following dose reduction techniques: Automated exposure control, adjustment of the mA and/or kV according to patient size, and/or use of iterative reconstruction technique. FINDINGS: LOWER THORAX: Unremarkable. LIVER: Diffuse hepatic steatosis. No gross lesion or ductal dilatation. GALLBLADDER AND BILE DUCTS: Prior cholecystectomy with surgical clips in place. PANCREAS: Unremarkable. No gross lesion or ductal dilatation. SPLEEN: Unremarkable. ADRENALS: Unremarkable. No mass. KIDNEYS AND URETERS: Multiple bilateral punctate nonobstructive renal calculi. No hydronephrosis. No solid mass. VASCULATURE: Unremarkable. No aortic aneurysm. BOWEL: Unremarkable. No obstruction. No gross mural thickening. APPENDIX: Unremarkable. Normal appendix. PERITONEUM: Small fat containing umbilical hernia. No free fluid. No free air. LYMPH NODES: Unremarkable. No enlarged lymph nodes. BLADDER: Unremarkable. REPRODUCTIVE: 2.2 cm dominant left ovarian follicle. BONES: No acute fracture. OTHER FINDINGS: None. IMPRESSION: No obstructive uropathy or evidence of recently passed genitourinary calculus. Bilateral nonobstructive punctate renal calculi.
[2018-04-20] MEDS ORDERED: cefTRIAXone (Rocephin) 1 gm Inj ONE (14:34)
[2018-04-20 15:57] VITALS: BP 117/64; PULSE 90; TEMP 97.9; O2SAT 99
== END 2018-04-20 16:20 | disposition home or self-care (01) ==
LOC: H.ER 11:39
DX: N12 Tubulo-interstitial nephritis, not specified as acute or chronic (principal); R31.9 Hematuria, unspecified; E11.22 Type 2 diabetes mellitus with diabetic chronic kidney disease; E78.00 Pure hypercholesterolemia, unspecified; F41.9 Anxiety disorder, unspecified; I12.9 Hypertensive chronic kidney disease with stage 1 through stage 4 chronic kidney disease, or unspecified chronic kidney disease; Z79.84 Long term (current) use of oral hypoglycemic drugs
CPT/HCPCS: 74176; 80053; 81003; 85025; 87040; 87086; 96365; 96375; 99284; J0696; J1885; J2405

== ENCOUNTER 2018-08-11 08:08 | Emergency (ER) | payer MEDICARE, MEDICAID ==
[2018-08-11 08:08] VITALS: BMI 33.8
[2018-08-11 08:16] VITALS: PULSE 96; RESP 18; TEMP 98.6; O2SAT 99
--- NOTE | 2018-08-11 09:30 | ED PDOC ---
HPI: General Adult Time Seen by Provider: 08/11/18 09:08 Chief Complaint (Nursing): Chest Pain Chief Complaint (Provider): headache, dizziness and chest pain History Per: Patient History/Exam Limitations: no limitations Onset/Duration Of Symptoms: Intermittent Episodes, Other (2 weeks) Current Symptoms Are (Timing): Still Present Additional Complaint(s): 58 year old female presents to the ED for an evaluation of headache, dizziness and chest pain onset for 2 weeks intermittently. Patient has a history HTN, diabetes, rheumatoid arthritis. Denies shortness of breath or focal weakness. PMD: Tristin Sparks Past Medical History Reviewed: Historical Data, Nursing Documentation, Vital Signs Vital Signs: Last Vital Signs Temp 98.6 F 08/11/18 08:15 Pulse 96 H 08/11/18 08:15 Resp 18 08/11/18 08:15 BP 175/98 H 08/11/18 08:15 Pulse Ox 99 08/11/18 08:15 - Medical History PMH: Anxiety, Diabetes (type II), HTN, Hypercholesterolemia, Kidney Stones, Chronic Kidney Disease (stones), Rheumatoid Arthritis Denies: Hepatitis, HIV, Seizures, Sexually Transmitted Disease - Surgical History Surgical History: Appendectomy, Cholecystectomy Denies: CABG - Family History Family History: States: Unknown Family Hx - Immunization History Hx Tetanus Toxoid Vaccination: Yes Hx Influenza Vaccination: Yes Hx Pneumococcal Vaccination: Yes - Home Medications Home Medications: Ambulatory Orders Medication Instructions Recorded ALPRAZolam [Xanax] 0.25 mg PO HS 05/25/17 Allopurinol [Zyloprim] 300 mg PO DAILY 05/25/17 Aspirin [Ecotrin] 81 mg PO DAILY 05/25/17 Atenolol [Tenormin] 100 mg PO DAILY 05/25/17 Atorvastatin [Lipitor] 40 mg PO DAILY 05/25/17 Losartan Potassium 100 mg PO DAILY 05/25/17 [place]-3 Fatty Acids/Fish Oil 1,000 mg PO TID 05/25/17 [[place] 3 Fish Oil Softgel] diltiaZEM [Cardizem] 240 mg PO DAILY 05/25/17 Ibuprofen [Motrin] 600 mg PO Q8 PRN #30 tab 05/26/17 metFORMIN [glucOPHAGE] 1,000 mg PO BID #60 tab 05/26/17 Naproxen [Naprosyn] 500 mg PO BID PRN #15 tablet 02/18/18 Ciprofloxacin HCl [Cipro] 500 mg PO BID #14 tab 04/20/18 Naproxen 375 mg PO Q8 PRN #21 tablet 04/20/18 Ondansetron ODT [Zofran ODT] 4 mg PO Q8 PRN #10 odt 04/20/18 Ondansetron ODT [Zofran ODT] 1 odt PO BID PRN #6 odt 05/16/18 traMADol [Ultram] 50 mg PO TID PRN #15 tab 05/16/18 Nitrofurantoin Macrocrystals 1 cap PO BID #14 cap 05/17/18 [Macrobid] Tamsulosin [Flomax] 0.4 mg PO DAILY #15 cap 05/17/18 Meclizine [Meclizine*] 25 mg PO Q8 #15 tab 08/11/18 Metoprolol Succinate [Toprol Xl] 25 mg PO DAILY #10 tab.er.24h 08/11/18 - Allergies Allergies/Adverse Reactions: Allergies Allergy/AdvReac Type Severity Reaction Status Date / Time No Known Allergies Allergy Verified 05/16/18 18:27 Review of Systems ROS Statement: Except As Marked, All Systems Reviewed And Found Negative Cardiovascular: Positive for: Chest Pain Respiratory: Negative for: Shortness of Breath Neurological: Positive for: Headache, Dizziness. Negative for: Weakness Physical Exam - Reviewed Nursing Documentation Reviewed: Yes Vital Signs Reviewed: Yes - Physical Exam Appears: Positive for: Non-toxic, No Acute Distress Head Exam: Positive for: ATRAUMATIC, NORMAL INSPECTION, NORMOCEPHALIC Skin: Positive for: Normal Color, Warm, Dry. Negative for: Rash Eye Exam: Positive for: EOMI, Normal appearance, PERRL ENT: Positive for: Normal ENT Inspection Neck: Positive for: Normal, Painless ROM Cardiovascular/Chest: Positive for: Regular Rate, Rhythm. Negative for: Murmur Respiratory: Positive for: Normal Breath Sounds. Negative for: Decreased Breath Sounds, Wheezing, Respiratory Distress Gastrointestinal/Abdominal: Positive for: Normal Exam, Soft. Negative for: Tenderness, Guarding, Rebound Back: Positive for: Normal Inspection. Negative for: L CVA Tenderness, R CVA Tenderness Extremity: Positive for: Normal ROM. Negative for: Tenderness, Pedal Edema, Deformity Neurologic/Psych: Positive for: Alert, deck specialist II-XII (intact), Oriented (x3), Gait (steady). Negative for: Motor/Sensory Deficits, Mood/Affect, Aphasia, Facial Droop - ECG O2 Sat by Pulse Oximetry: 99 (RA) Pulse Ox Interpretation: Normal Medical Decision Making Medical Decision Making: Time: 912 Initial Plan: Lopressor 25mg Tylenol 650mg Reevaluation ------ Scribe Attestation: Documented by Jaciel Mejía, acting as a scribe for Jonnie Baird MD. Provider Scribe Attestation: All medical record entries made by the Scribe were at my direction and personally dictated by me. I have reviewed the chart and agree that the record accurately reflects my personal performance of the history, physical exam, medical decision making, and the department course for this patient. I have also personally directed, reviewed, and agree with the discharge instructions and disposition. Disposition - Clinical Impression Clinical Impression: HTN (hypertension) - Patient ED Disposition Is Patient to be Admitted: No Counseled Patient/Family Regarding: Studies Performed, Diagnosis, Need For Followup, Rx Given - Disposition Referrals: [facility] [Outside] Disposition: Routine/Home Disposition Time: 10:23 Condition: FAIR Prescriptions: Meclizine [Meclizine*] 25 mg PO Q8 #15 tab Metoprolol Succinate [Toprol Xl] 25 mg PO DAILY #10 tab.er.24h Instructions: High Blood Pressure in Adults Forms: [employer] ([place]an)
[2018-08-11 10:07] VITALS: BP 141/87
== END 2018-08-11 10:34 | disposition home or self-care (01) ==
LOC: H.ER 08:08
DX: I10 Essential (primary) hypertension (principal); E11.22 Type 2 diabetes mellitus with diabetic chronic kidney disease; I12.9 Hypertensive chronic kidney disease with stage 1 through stage 4 chronic kidney disease, or unspecified chronic kidney disease; Z79.84 Long term (current) use of oral hypoglycemic drugs

== ENCOUNTER 2018-12-13 15:16 | Inpatient (IN) | payer MEDICARE, MEDICAID ==
[2018-12-13 15:17] VITALS: BMI 33.8
--- NOTE | 2018-12-13 15:55 | ED PDOC ---
HPI: Back Time Seen by Provider: 12/13/18 15:29 Chief Complaint (Nursing): Back Pain Chief Complaint (Provider): Back Pain History Per: Patient History/Exam Limitations: no limitations Onset/Duration Of Symptoms: Days (2x) Current Symptoms Are (Timing): Still Present Severity: Moderate Previous Symptoms: Back Pain Additional Complaint(s): 58 year old female with a past medical history of kidney stones, hypertension, hypercholesterolemia, and diabetes presents to the ED for an evaluation of right sided back pain which radiates down to her groin that started yesterday. Patient reports having similar pain in the past when she had kidney stones. Patient states that she usually gets treatment for kidney stones in [place] (lithotripsy), but 2x months ago she was seen by her PMD with similar complaints and was told to wait and let them pass (she passed 1x stone). Patient also reports having dark colored urine yesterday, and vomiting. Patient denies having chest pain, shortness of breath, and diarrhea. PMD: Kat Terry MD Kidney stone treatment: [facility] Past Medical History Reviewed: Historical Data, Nursing Documentation, Vital Signs Vital Signs: Last Vital Signs Temp 97.8 F 12/13/18 15:21 Pulse 106 H 12/13/18 15:21 Resp 16 12/13/18 15:21 BP 143/80 12/13/18 15:21 Pulse Ox 98 12/13/18 15:21 LYNDSAY Report Viewed: Yes - Medical History PMH: Anxiety, Diabetes (type II), HTN, Hypercholesterolemia, Kidney Stones, Chronic Kidney Disease (stones), Rheumatoid Arthritis Denies: Hepatitis, HIV, Seizures, Sexually Transmitted Disease - Surgical History Surgical History: Appendectomy, Cholecystectomy Denies: CABG - Family History Family History: States: No Known Family Hx - Social History Current smoker - smoking cessation education provided: Yes Alcohol: None Drugs: Denies - Immunization History Hx Tetanus Toxoid Vaccination: Yes Hx Influenza Vaccination: Yes Hx Pneumococcal Vaccination: Yes - Home Medications Home Medications: Ambulatory Orders Medication Instructions Recorded ALPRAZolam [Xanax] 0.25 mg PO HS 05/25/17 Allopurinol [Zyloprim] 300 mg PO DAILY 05/25/17 Aspirin [Ecotrin] 81 mg PO DAILY 05/25/17 Atenolol [Tenormin] 100 mg PO DAILY 09/16/17 Atorvastatin [Lipitor] 40 mg PO DAILY 05/25/17 Losartan Potassium 100 mg PO DAILY 05/25/17 [place]-3 Fatty Acids/Fish Oil 1,000 mg PO TID 05/25/17 [[place] 3 Fish Oil Softgel] diltiaZEM [Cardizem] 240 mg PO DAILY 05/25/17 Ibuprofen [Motrin] 600 mg PO Q8 PRN #30 tab 05/26/17 metFORMIN [glucOPHAGE] 1,000 mg PO BID #60 tab 05/26/17 Naproxen [Naprosyn] 500 mg PO BID PRN #15 tablet 02/18/18 Ciprofloxacin HCl [Cipro] 500 mg PO BID #14 tab 04/20/18 Naproxen 375 mg PO Q8 PRN #21 tablet 04/20/18 Ondansetron ODT [Zofran ODT] 4 mg PO Q8 PRN #10 odt 04/20/18 Ondansetron ODT [Zofran ODT] 1 odt PO BID PRN #6 odt 05/16/18 traMADol [Ultram] 50 mg PO TID PRN #15 tab 05/16/18 Nitrofurantoin Macrocrystals 1 cap PO BID #14 cap 05/17/18 [Macrobid] Tamsulosin [Flomax] 0.4 mg PO DAILY #15 cap 05/17/18 Meclizine [Meclizine*] 25 mg PO Q8 #15 tab 08/11/18 Metoprolol Succinate [Toprol Xl] 25 mg PO DAILY #10 tab.er.24h 08/11/18 - Allergies Allergies/Adverse Reactions: Allergies Allergy/AdvReac Type Severity Reaction Status Date / Time No Known Allergies Allergy Verified 12/13/18 15:20 Review of Systems ROS Statement: Except As Marked, All Systems Reviewed And Found Negative Cardiovascular: Negative for: Chest Pain Respiratory: Negative for: Shortness of Breath Gastrointestinal: Positive for: Vomiting. Negative for: Diarrhea Genitourinary Female: Positive for: Other (dark colored urine) Musculoskeletal: Positive for: Back Pain (right sided, radiates down to groin) Physical Exam - Reviewed Nursing Documentation Reviewed: Yes Vital Signs Reviewed: Yes - Physical Exam Appears: Positive for: Well, Non-toxic, No Acute Distress Head Exam: Positive for: ATRAUMATIC, NORMOCEPHALIC Skin: Positive for: Normal Color, Warm, Dry Cardiovascular/Chest: Positive for: Regular Rate, Rhythm Respiratory: Positive for: Normal Breath Sounds Gastrointestinal/Abdominal: Positive for: Soft, Tenderness (right lower quadrant tenderness) Back: Positive for: Other (right flank tenderness) Extremity: Positive for: Normal ROM. Negative for: Swelling Neurological/Psych: Positive for: Awake, Alert, Oriented (3x) - Laboratory Results Result Diagrams: 12/13/18 16:56 12/13/18 16:56 Interpretation Of Abn Labs: no acute - ECG O2 Sat by Pulse Oximetry: 98 (RA) Pulse Ox Interpretation: Normal - CT Scan/US ct Other Rad Studies (CT/US): Read By Radiologist Other Rad Interpretation: 5.5mm calculus obstruct distal ureter R - Progress ED Course And Treament: 190: Stable. AAOx3. Pain increased, will do toradol again. Spoke with Dr. Lang. Will consult. Wants pt. to get admitted considering stone size and hydro. Spoke with Dr. Connor. Rc admit. Medical Decision Making Medical Decision Makin:29 Initial impression: 58 year old female with back pain. Scribe Attestation: Documented Scott Hammonds, acting as a scribe for Jc Cedeño MD. Provider Scribe Attestation: All medical record entries made by the Scribe were at my direction and personally dictated by me. I have reviewed the chart and agree that the record accurately reflects my personal performance of the history, physical exam, medical decision making, and the department course for this patient. I have also personally directed, reviewed, and agree with the discharge instructions and disposition. Disposition - Clinical Impression Clinical Impression: Urolithiasis, Abdominal pain, Hydronephrosis - Patient ED Disposition Is Patient to be Admitted: Yes Counseled Patient/Family Regarding: Studies Performed, Diagnosis - Disposition Disposition Time: 16:00 Condition: FAIR - Pt Status Changed To: Hospital Disposition Of: Inpatient - Admit Certification Admit to Inpatient:: After my assessment, the patient will require hospi talization for at least two midnights. This is because of the severity of symptoms shown, intensity of services needed, and/or the medical risk in this patient being treated as an outpatient. - POA Present On Arrival: None
[2018-12-13] MEDS ORDERED: Sodium Chloride 0.9% 1,000 ML IV STA (16:06)
[2018-12-13 17:00] LABS: BASO # 0.1 K/uL (0.0-0.2); BASO % 0.9 % (0.0-2.0); EOS # 0.4 K/uL (0.0-0.7); EOS % 4.2 % (0.0-4.0); LYMPH # 2.4 K/uL (1.0-4.3); LYMPH % 27.9 % (20.0-40.0); MEAN CORPUSCULAR HEMOGLOBIN 30.5 pg (27.0-31.0); MEAN PLATELET VOLUME 8.5 fl (7.2-11.7); MONO # 0.7 K/uL (0.0-0.8); MONO % 8.1 % (0.0-10.0); NEUT # 5.2 K/uL (1.8-7.0); NEUT % 58.9 % (50.0-75.0); NRBC % 0.1 % (0.0-0.0); RBC 4.61 Mil/uL (3.80-5.20); RED CELL DISTRIBUTION WIDTH 14.2 % (11.5-14.5); WHITE BLOOD COUNT 8.8 K/uL (4.8-10.8)
[2018-12-13 17:13] LABS: ALB/GLOB RATIO 1.1 (1.0-2.1); ALBUMIN 4.2 g/dL (3.5-5.0); ALT/SGPT 43 U/L (9-52); AST/SGOT 28 U/L (14-36); BLOOD UREA NITROGEN 19 mg/dl (7-17); CALCIUM 10.1 mg/dL (8.4-10.2); GFR NON-AFRICAN AMERICAN > 60
[2018-12-13 17:19] LABS: MEAN CELL VOLUME 89.5 fl (81.0-99.0)
--- NOTE | 2018-12-13 17:36 | CT ---
Date of service: 12/13/2018 PROCEDURE: CT Abdomen and Pelvis without intravenous contrast HISTORY: R/O stone COMPARISON: Noncontrast abdomen pelvis CT 04/20/2018. TECHNIQUE: Helical CT of the abdomen and pelvis was performed without oral or intravenous contrast as per referring physician request. Coronal and sagittal reformats were generated. Radiation dose: Total exam DLP = 878.23 mGy-cm. This CT exam was performed using one or more of the following dose reduction techniques: Automated exposure control, adjustment of the mA and/or kV according to patient size, and/or use of iterative reconstruction technique. FINDINGS: LOWER THORAX: Unremarkable. LIVER: Unremarkable. No gross lesion or ductal dilatation. GALLBLADDER AND BILE DUCTS: Prior cholecystectomy. PANCREAS: Unremarkable. No gross lesion or ductal dilatation. SPLEEN: Unremarkable. ADRENALS: Unremarkable. No mass. KIDNEYS AND URETERS: [id number] right hydroureteronephrosis caused by a 5.5 mm calculus obstructing the distal right ureter at the upper sacral level. No left hydronephrosis. Mild right perinephric reaction is identified. A 7.1 mm intrarenal calculus is noted at the lower pole right kidney, nonobstructive with a punctate right midpolecalculus also present. 2-3 punctate intrarenal calculi identified at the mid to lower pole left kidney. The left ureter is unremarkable. VASCULATURE: Unremarkable. No aortic aneurysm. No aortic atherosclerotic calcification or mural plaque present. BOWEL: Unremarkable. No obstruction. No gross mural thickening. APPENDIX: Unremarkable. Normal appendix. PERITONEUM: Small infraumbilical hernia again evident containing only mesenteric fat. No free fluid. No free air. LYMPH NODES: Unremarkable. No enlarged lymph nodes. BLADDER: Unremarkable. REPRODUCTIVE: 2.1 cm left adnexal cyst chronically. BONES: No acute fracture. OTHER FINDINGS: None. IMPRESSION: 5.5 mm calculus obstructs the distal right ureter causing [id number] right hydroureteronephrosis. Bilateral nonobstructing intrarenal calculi identified, right greater than left kidney. Urinary bladder unremarkable appearing. Lesser findings as discussed above.
[2018-12-13 18:57] LABS: SQUAMOUS EPITHIAL 1 /hpf (0-5); URINE BILIRUBIN NEGATIVE (NEGATIVE); URINE BLOOD LARGE (NEGATIVE); URINE CLARITY SLIGHTY-CLOUDY (Clear); URINE COLOR YELLOW (YELLOW); URINE GLUCOSE (UA) 50 mg/dL (NEGATIVE); URINE LEUKOCYTE ESTERASE NEG Leu/uL (Negative); URINE PROTEIN 30 mg/dL (NEGATIVE); URINE UROBILINOGEN 0.2-1.0 mg/dL (0.2-1.0)
[2018-12-14] MEDS: Sodium Chloride 0.9% 1,000 ML IV SCH ×3 (03:32→22:30)
[2018-12-14] MEDS: Insulin Regular 100 units/ml SC SCH ×3 (06:25→21:30)
[2018-12-14] MEDS: ATENOLOL 100 MG TAB PO SCH (08:57)
[2018-12-15] MEDS: Insulin Regular 100 units/ml SC SCH ×4 (08:22→23:37)
[2018-12-15] MEDS: ATENOLOL 100 MG TAB PO SCH (10:18)
--- NOTE | 2018-12-15 13:26 | RAD ---
Date of service: 12/15/2018 PROCEDURE: CHEST RADIOGRAPH, 1 VIEW HISTORY: Pre-op COMPARISON: 05/25/2017. FINDINGS: LUNGS: The lungs are well inflated and clear. PLEURA: No pneumothorax or pleural effusion. CARDIOVASCULAR: The heart is normal in size. No aortic atherosclerotic calcifications present. OSSEOUS STRUCTURES: Within normal limits for the patient's age. VISUALIZED UPPER ABDOMEN: Normal. OTHER FINDINGS: None. IMPRESSION: No active pulmonary disease.
--- NOTE | 2018-12-15 15:24 | CARD ---
APPROVED REPORT Date of service: 12/15/2018 EKG Measurement Heart [id number] [place] [id number] <Conclusion> Normal sinus rhythm Normal ECG
--- NOTE | 2018-12-15 19:07 | CP.PCM.HP ---
History of Present Illness - History of Present Illness History of Present Illness: 58 year old female with a past medical history of kidney stones, hypertension, hypercholesterolemia, and diabetes presented to ED with right flank pain. Patient follows up with Dr. Terry as urology as outpatient. Patient was found to have 5.5mm calculus obstructing R distal ureter. Patient was admitted for further eval and treatment. Patient seen and examined at bedside. Continues with pain but controlled with meds. Patient has yet to pass the stone though she states she feels it is close. No other complaints offered at this time. Denies fever, chills, headache, chest pain, or sob. Allergies: as per chart Meds: as per chart Fam hx: non contributory Present on Admission - Present on Admission Any Indicators Present on Admission: Yes History of Uncontrolled Diabetes: Yes Review of Systems - Review of Systems All systems: reviewed and no additional remarkable complaints except (mentioned above) Past Patient History - Infectious Disease Hx of Infectious Diseases: None - Past Medical History & Family History Past Medical History?: Yes - Past Social History Smoking Status: Heavy Smoker > 10 Cigarettes Daily - CARDIAC Hx Hypercholesterolemia: Yes Hx Hypertension: Yes - PULMONARY Hx Tuberculosis: No - NEUROLOGICAL Hx Seizures: No - HEENT Hx HEENT Problems: No - RENAL Hx Chronic Kidney Disease: Yes (stones) Hx Kidney Stones: Yes - ENDOCRINE/METABOLIC Hx Endocrine Disorders: Yes Hx Diabetes Mellitus Type 2: Yes - HEMATOLOGICAL/ONCOLOGICAL Hx AIDS: No - INTEGUMENTARY Hx Dermatological Problems: No - MUSCULOSKELETAL/RHEUMATOLOGICAL Hx Falls: No - GASTROINTESTINAL Hx Gastrointestinal Disorders: No - GENITOURINARY/GYNECOLOGICAL Hx Sexually Transmitted Disorders: No - PSYCHIATRIC Hx Substance Use: No - SURGICAL HISTORY Hx Appendectomy: Yes Hx Cholecystectomy: Yes Hx Coronary Artery Bypass Graft: No - ANESTHESIA Hx Anesthesia: Yes Hx Anesthesia Reactions: Yes (nausea) Hx Malignant Hyperthermia: No Meds Allergies/Adverse Reactions: Allergies Allergy/AdvReac Type Severity Reaction Status Date / Time No Known Allergies Allergy Verified 12/13/18 15:20 Physical Exam - Constitutional Appears: Non-toxic, No Acute Distress - Head Exam Head Exam: NORMAL INSPECTION - Eye Exam Eye Exam: Normal appearance - Neck Exam Neck exam: Positive for: Normal Inspection - Respiratory Exam Respiratory Exam: Clear to Auscultation Bilateral, NORMAL BREATHING PATTERN - Cardiovascular Exam Cardiovascular Exam: RRR, +S1, +S2 - GI/Abdominal Exam GI & Abdominal Exam: Normal Bowel Sounds, Soft, Tenderness (right flank) - Extremities Exam Extremities exam: Positive for: normal inspection - Neurological Exam Neurological exam: Alert, Oriented x3 - Psychiatric Exam Psychiatric exam: Normal Affect, Normal Mood - Skin Skin Exam: Normal Color, Warm Results - Vital Signs Recent Vital Signs: Last Vital Signs Temp 97.7 F 12/15/18 15:57 Pulse 89 12/15/18 15:57 Resp 18 12/15/18 15:57 BP 131/72 12/15/18 15:57 Pulse Ox 98 12/15/18 15:57 - Labs Result Diagrams: 12/13/18 16:56 12/13/18 16:56 Labs: Laboratory Results - last 24 hr 12/14/18 12/15/18 12/15/18 19:51 08:21 12:46 POC Glucose (mg/dL) 186 H 182 H 141 H 12/15/18 15:48 POC Glucose (mg/dL) 120 H Assessment & Plan (1) Urolithiasis Status: Acute - Assessment and Plan (Free Text) Plan: available diagnostic data reviewed monitor vitals monitor labs strain urine flomax pain control prn Urology consult recommendations appreciated rest of plan as ordered
[2018-12-15 19:08] LABS: INR 1.1; PROTHROMBIN TIME 12.3 Seconds (9.8-13.1)
[2018-12-15] MEDS ORDERED: cefTRIAXone (Rocephin) 1 gm Inj ONE (19:10)
[2018-12-15] MEDS ORDERED: Iohexol 300 100 ML IJ ONE (19:10)
[2018-12-15] MEDS ORDERED: Liquid Adhesive TOP ONE (19:10)
[2018-12-15 19:11] LABS: PARTIAL THROMBOPLASTIN TIME 33.4 Seconds (25.6-37.1)
--- NOTE | 2018-12-15 19:15 | CP.PCM.PN ---
Subjective - Date & Time of Evaluation Date of Evaluation: 12/15/18 Time of Evaluation: 09:00 - Subjective Subjective: patient seen and examined at bedside. Interim events noted pain continues, has unable to pass the stone denies cp/sob/fever/chills. available diagnostic data reviewed Review of Systems All systems: reviewed and no additional remarkable complaints except mentioned above Objective Vital Signs Stable - Constitutional Appears: Non-toxic, No Acute Distress Head Exam: NORMAL INSPECTION Eye Exam: Normal appearance Respiratory Exam: NORMAL BREATHING PATTERN Cardiovascular Exam: +S1, +S2 GI & Abdominal Exam: Soft, right flank tenderness Neurological Exam: Alert, Awake Psychiatric exam: Normal Affect, Normal Mood Skin Exam: Normal Color, Warm Assessment and Plan monitor vitals monitor labs Cont meds Cont tx consultants appreciated input EKG and CXR reviewed, unremarkable Patient is medically optimized for procedure rest of plan as ordered Objective - Vital Signs/Intake and Output Vital Signs (last 24 hours): Temp Pulse Resp BP Pulse Ox 97.7 F 89 18 131/72 98 12/15/18 15:57 12/15/18 15:57 12/15/18 15:57 12/15/18 15:57 12/15/18 15:57 - Medications Medications: Current Medications Aspirin (Ecotrin) 81 mg PO DAILY [facility] Last Admin: 12/15/18 10:18 Dose: Not Given Atenolol (Atenolol) 100 mg PO DAILY [facility] Last Admin: 12/15/18 10:18 Dose: Not Given Insulin Human Regular (Humulin R) 0 units SC [facility]; Protocol Last Admin: 12/15/18 16:42 Dose: Not Given Ketorolac Tromethamine (Toradol) 15 mg IVP Q6 PRN PRN Reason: Pain, moderate (4-7) Last Admin: 12/15/18 12:42 Dose: 15 mg Losartan Potassium (Cozaar) 100 mg PO DAILY [facility] Last Admin: 12/15/18 10:18 Dose: Not Given Metformin HCl (Glucophage) 1,000 mg PO BID [facility] Last Admin: 12/15/18 16:44 Dose: Not Given Morphine Sulfate (Morphine) 3 mg IVP Q4 PRN PRN Reason: Pain, severe (8-10) Last Admin: 12/15/18 14:11 Dose: 3 mg Ondansetron HCl (Zofran Inj) 4 mg IVP Q4 PRN PRN Reason: Nausea/Vomiting Last Admin: 12/15/18 14:17 Dose: 4 mg Tamsulosin HCl (Flomax) 0.4 mg PO DAILY [facility] Last Admin: 12/15/18 10:18 Dose: Not Given - Labs Labs: 12/13/18 16:56 12/13/18 16:56 PT 12.3 Seconds (9.8-13.1) 12/15/18 19:00 INR 1.1 12/15/18 19:00 APTT 33.4 Seconds (25.6-37.1) 12/15/18 19:00 Assessment and Plan (1) Urolithiasis Status: Acute
[2018-12-15] MEDS ORDERED: Lidocaine 1% 5ml Abboject ONE (19:45)
[2018-12-15] MEDS ORDERED: Midazolam 2 MG/2 ML VIAL ONE (19:45)
[2018-12-15] MEDS ORDERED: Sodium Chloride 0.9% 1,000 ML IV ONE (19:45)
[2018-12-15] MEDS ORDERED: Propofol 10 mg/ml Inj (20 ML) ONE (19:45)
[2018-12-15] MEDS ORDERED: HYDROmorphone 0.5 mg/0.5 ml ISec IVP PRN (20:19)
[2018-12-15] MEDS ORDERED: Lidocaine 2% Jelly (5 ml) TOP ONE (20:26)
[2018-12-15] MEDS ORDERED: Sodium Chloride 0.9% 1,000 ML IV SCH (20:30)
[2018-12-16 00:24] VITALS: RESP 19
--- NOTE | 2018-12-16 05:12 | OP ---
PROCEDURE DATE: 12/15/2018 PREOPERATIVE DIAGNOSIS: Right renal colic with multiple right ureteral calculi. POSTOPERATIVE DIAGNOSIS: Right renal colic with multiple right ureteral calculi. PROCEDURE PERFORMED: Cystoscopy, right ureteroscopy, stone basketing and J-stent placement under general anesthesia. ANESTHESIA: General. SURGEON: Kat Terry MD DESCRIPTION OF PROCEDURE: The patient was placed in the operating room table, dorsal lithotomy position. The area of the groin was draped and prepped in the sterile manner. Using a ureteroscope, I entered into the bladder atraumatically, identified the right ureteral orifice, and over a sensor wire, I advanced the ureteroscope to the level of the obstructing stone. I engaged the stone completely, removed it. On initial CAT scan that appeared to be the only stone. When I went to do a relook he got to the point where I went back and then proximal to where the original stone was located in the lower third, there was another rather larger stone, also causing more significant obstruction at this time, then I was unable to basket the larger stone, but I did get the guidewire around the calculus and up into the renal pelvis, so then under fluoroscopy I placed a 6 [place] multi-length double J stent. The patient will eventually be taken for lithotripsy for the treatment of that stone. The first stone was sent for specimen analysis and then all instrumentation was removed. The patient was taken from the operating room in good condition. There was no significant blood loss at this procedure. Kat Terry MD
[2018-12-16 07:39] VITALS: BP 146/75; PULSE 96; TEMP 97.8; O2SAT 97
[2018-12-16] MEDS: ATENOLOL 100 MG TAB PO SCH (08:29)
[2018-12-16] MEDS: Insulin Regular 100 units/ml SC SCH (08:32)
[2018-12-16 10:45] LABS: HEMOGLOBIN 13.5 g/dL (12.0-16.0); MEAN CELL VOLUME 90.7 fl (81.0-99.0); MEAN CORPUSCULAR HEMOGLOBIN 30.1 pg (27.0-31.0); MEAN CORPUSCULAR HGB CONC 33.2 g/dL (33.0-37.0); RBC 4.49 Mil/uL (3.80-5.20); RED CELL DISTRIBUTION WIDTH 14.2 % (11.5-14.5); WHITE BLOOD COUNT 7.9 K/uL (4.8-10.8)
[2018-12-16 11:04] LABS: ALB/GLOB RATIO 1.1 (1.0-2.1); ALBUMIN 3.9 g/dL (3.5-5.0); ALT/SGPT 61 U/L (9-52); AST/SGOT 37 U/L (14-36); BLOOD UREA NITROGEN 13 mg/dl (7-17); CALCIUM 8.9 mg/dL (8.4-10.2); GFR NON-AFRICAN AMERICAN > 60
--- NOTE | 2018-12-16 15:44 | RAD ---
Date of service: 12/15/2018 PROCEDURE: Fluoroscopy up to 1 hr. HISTORY: FLUOROSCOPY COMPARISON: None. TECHNIQUE: Standard protocol for this study/examination. FINDINGS: Total fluoroscopic time (continuous mode) utilized during the procedure 14.1 seconds. Total exam DLP: 6.51 (mGy). IMPRESSION: Submitted images from the current procedure: 2.0 Less than 1 hr fluoroscopic assistance provided during performance of the procedure.
--- NOTE | 2018-12-17 00:51 | CP.PCM.DIS ---
Provider - Provider Date of Admission: 12/13/18 19:03 Attending physician: Tommy Connor MD Consults: 12/13/18 19:06 Urology Consult Stat Comment: Consulting Provider: Kat Terry Consulting Physician: Kat Terry Reason for Consult: kidney stones Time Spent in preparation of Discharge (in minutes): 30 Diagnosis - Discharge Diagnosis (1) Hydronephrosis Status: Acute (2) Urolithiasis Status: Acute Hospital Course - Lab Results Lab Results: Most Recent Lab Values WBC 7.9 K/uL (4.8-10.8) 12/16/18 10:25 RBC 4.49 Mil/uL (3.80-5.20) 12/16/18 10:25 Hgb 13.5 g/dL (12.0-16.0) 12/16/18 10:25 Hct 40.7 % (34.0-47.0) 12/16/18 10:25 MCV 90.7 fl (81.0-99.0) 12/16/18 10:25 MCH 30.1 pg (27.0-31.0) 12/16/18 10:25 MCHC 33.2 g/dL (33.0-37.0) 12/16/18 10:25 RDW 14.2 % (11.5-14.5) 12/16/18 10:25 Plt Count 104 K/uL (130-400) L D 12/16/18 10:25 MPV 8.5 fl (7.2-11.7) 12/13/18 16:56 Neut % (Auto) 58.9 % (50.0-75.0) 12/13/18 16:56 Lymph % (Auto) 27.9 % (20.0-40.0) 12/13/18 16:56 [place] % (Auto) 8.1 % (0.0-10.0) 12/13/18 16:56 Eos % (Auto) 4.2 % (0.0-4.0) H 12/13/18 16:56 Baso % (Auto) 0.9 % (0.0-2.0) 12/13/18 16:56 Neut # (Auto) 5.2 K/uL (1.8-7.0) 12/13/18 16:56 Lymph # (Auto) 2.4 K/uL (1.0-4.3) 12/13/18 16:56 [place] # (Auto) 0.7 K/uL (0.0-0.8) 12/13/18 16:56 Eos # (Auto) 0.4 K/uL (0.0-0.7) 12/13/18 16:56 Baso # (Auto) 0.1 K/uL (0.0-0.2) 12/13/18 16:56 PT 12.3 Seconds (9.8-13.1) 12/15/18 19:00 INR 1.1 12/15/18 19:00 APTT 33.4 Seconds (25.6-37.1) 12/15/18 19:00 Sodium 139 mmol/l (132-148) 12/16/18 10:25 Potassium 3.4 MMOL/L (3.6-5.0) L 12/16/18 10:25 Chloride 107 mmol/L (98-107) 12/16/18 10:25 Carbon Dioxide 19 mmol/L (22-30) L 12/16/18 10:25 Anion Gap 16 (10-20) 12/16/18 10:25 BUN 13 mg/dl (7-17) 12/16/18 10:25 Creatinine 0.4 mg/dl (0.7-1.2) L 12/16/18 10:25 Est GFR ( Amer) > 60 12/16/18 10:25 Est GFR (Non-Af Amer) > 60 12/16/18 10:25 POC Glucose (mg/dL) 265 mg/dL (65-110) H 12/16/18 10:48 Random Glucose 271 mg/dL (65-105) H 12/16/18 10:25 Calcium 8.9 mg/dL (8.4-10.2) 12/16/18 10:25 Total Bilirubin 0.5 mg/dl (0.2-1.3) 12/16/18 10:25 AST 37 U/L (14-36) H D 12/16/18 10:25 ALT 61 U/L (9-52) H D 12/16/18 10:25 Alkaline Phosphatase 89 U/L (38-126) 12/16/18 10:25 Total Protein 7.5 G/DL (6.3-8.2) 12/16/18 10:25 Albumin 3.9 g/dL (3.5-5.0) 12/16/18 10:25 Globulin 3.6 gm/dL (2.2-3.9) 12/16/18 10:25 Albumin/Globulin Ratio 1.1 (1.0-2.1) 12/16/18 10:25 Urine Color Yellow (YELLOW) 12/13/18 18:40 Urine Clarity Slighty-cloudy (Clear) 12/13/18 18:40 Urine pH 5.0 (5.0-8.0) 12/13/18 18:40 Ur Specific [place] 1.025 (1.003-1.030) 12/13/18 18:40 Urine Protein 30 mg/dL (NEGATIVE) 12/13/18 18:40 Urine Glucose (UA) 50 mg/dL (NEGATIVE) 12/13/18 18:40 Urine Ketones Trace mg/dL (NEGATIVE) 12/13/18 18:40 Urine Blood Large (NEGATIVE) 12/13/18 18:40 Urine Nitrate Negative (NEGATIVE) 12/13/18 18:40 Urine Bilirubin Negative (NEGATIVE) 12/13/18 18:40 Urine Urobilinogen 0.2-1.0 mg/dL (0.2-1.0) 12/13/18 18:40 Ur Leukocyte Esterase Neg Gwen/uL (Negative) 12/13/18 18:40 Urine RBC (Auto) 533 /hpf (0-3) H 12/13/18 18:40 Urine Microscopic WBC 3 /hpf (0-5) 12/13/18 18:40 Ur Squamous Epith Cells 1 /hpf (0-5) 12/13/18 18:40 - Hospital Course Hospital Course: Pt was admitted for urolithiasis and hydronephrosis. Dr. Terry, urology was consulted. The pt underwent a cystoscopy and J-stent placement. She clinically improved and was sent home on flomax and ultram. She will follow up with her PCP and urology within 1 week. Discharge Exam - Head Exam Head Exam: NORMAL INSPECTION - Eye Exam Eye Exam: EOMI, Normal appearance, PERRL Pupil Exam: NORMAL ACCOMODATION, PERRL - ENT Exam ENT Exam: Mucous Membranes Moist - Neck Exam Neck exam: Full Rom - Respiratory Exam Respiratory Exam: Clear to PA & Lateral, NORMAL BREATHING PATTERN, UNREMARKABLE - Cardiovascular Exam Cardiovascular Exam: REGULAR RHYTHM, +S1, +S2 - GI/Abdominal Exam GI & Abdominal Exam: Normal Bowel Sounds, Soft - Extremities Exam Extremities exam: full ROM - Back Exam Back exam: NORMAL INSPECTION - Neurological Exam Neurological exam: Alert, CN II-XII Intact, Oriented x3 - Psychiatric Exam Psychiatric exam: Normal Affect, Normal Mood - Skin Skin Exam: Dry, Intact, Normal Color, Warm Discharge Plan - Follow Up Plan Condition: FAIR Disposition: HOME/ ROUTINE Instructions: Urinary Obstruction (DC), How to Strain Your Urine
--- NOTE | 2018-12-17 09:12 | PQF ---
PROVIDER RESPONSE TEXT: Diabetes with hyperglycemia REVIEWER QUERY TEXT: Diabetic Associated Manifestations Please specify any manifestations associated / due to diabetes Such as: -- Diabetes with hypoglycemia -- Diabetes with hyperglycemia The patient's Clinical Indicators include: Rx: Metformin, ACCUCHECKS with Insulin coverage Query created by: Carly Joyner on 12/16/2018 10:55 AM Electronically signed by: Tommy Connor 12/17/2018 9:09 AM
== END 2018-12-16 11:15 | disposition home or self-care (01) | DRG 661 ==
LOC: H.ER 15:16 → H.ERHOLD 19:03 → H.MEDSURG1 12-15 09:14
PROVIDERS: ADMIT Family Medicine; ATTEND Family Medicine
PROC: 0T768DZ Dilation of Right Ureter with Intraluminal Device, Via Natural or Artificial Opening Endoscopic (ICD-10-PCS; principal; 2018-12-15 19:00)
PROC: 0TC68ZZ Extirpation of Matter from Right Ureter, Via Natural or Artificial Opening Endoscopic (ICD-10-PCS; 2018-12-15 19:00)
DX: N13.2 Hydronephrosis with renal and ureteral calculous obstruction (principal); E78.00 Pure hypercholesterolemia, unspecified; Z79.82 Long term (current) use of aspirin; Z79.84 Long term (current) use of oral hypoglycemic drugs; Z87.442 Personal history of urinary calculi; F17.210 Nicotine dependence, cigarettes, uncomplicated; E11.22 Type 2 diabetes mellitus with diabetic chronic kidney disease; I12.9 Hypertensive chronic kidney disease with stage 1 through stage 4 chronic kidney disease, or unspecified chronic kidney disease; N18.9 Chronic kidney disease, unspecified; M06.9 Rheumatoid arthritis, unspecified; F41.9 Anxiety disorder, unspecified; E11.65 Type 2 diabetes mellitus with hyperglycemia